=== PATIENT | female | born 1950 | race Caucasian/White ===

== ENCOUNTER 2020-09-15 10:20 | Outpatient (REF) | payer BC, MEDICARE, SELFPAY ==
[2020-09-15 12:26] LABS: MANUAL DIFF FLAG NO
[2020-09-15 12:35] LABS: Basophils Percent Auto 0.5 % (0-2); Eosinophils Absolute Auto 0.3 X10*3/uL (0.0-0.4); Hematocrit 43.2 % (37-47); Hemoglobin 13.4 g/dl (12.0-16.0); Imm Gran Abs Auto 0.02 X10*3/uL (0.00-0.03); Imm Gran Pct Auto 0.3 % (0.0-0.4); Lymphocytes Absolute Auto 1.4 X10*3/uL (1.2-4.9); Lymphocytes Percent Auto 22.3 % (20-40); Mean Corpuscular Hemoglobin 28.6 pg (27.0-33.0); Mean Corpuscular Volume 92.3 fL (80-98); Mean Platelet Volume 9.7 fL (9.4-12.3); Monocytes Absolute Auto 0.4 X10*3/uL (0.1-1.2); Monocytes Percent Auto 6.7 % (2-11); Neutrophils Absolute Auto 4.2 X10*3/uL (2.0-8.3); Neutrophils Percent Auto 66.2 % (45-73); Platelet Count 294 X10*3/uL (160-400); Red Blood Count 4.68 X10*6/uL (4.20-5.50); Red Cell Distribution Width 12.8 % (11.0-16.0); White Blood Count 6.3 X10*3/uL (4.8-10.8)
[2020-09-15 14:32] LABS: Erythrocyte Sedimentation Rate 28 MM/HR (0-20)
[2020-09-17 00:26] LABS: Anti Nuclear Antibody Screen POSITIVE (NEGATIVE); Anti Nuclear Antibody Titer 1:40 titer
[2020-09-17 21:21] LABS: IgA 196 mg/dL (70-320); IgG 1295 mg/dL (600-1540); IgM 63 mg/dL (50-300)
== END 2020-09-15 10:21 | disposition home or self-care (01) ==
LOC: HO.LAB 10:20
PROVIDERS: PCP Internal Medicine; Visit Provider Hospitalist
DX: J45.40 Moderate persistent asthma, uncomplicated (principal); J98.4 Other disorders of lung; R05 Cough; R06.02 Shortness of breath
CPT/HCPCS: 36415; 82784; 82785; 85025; 85652; 86003; 86038; 86039

== ENCOUNTER → 2020-10-16 13:54 | Outpatient (BNVA) | payer BC, MEDICARE, SELFPAY | PROVIDERS: PCP Internal Medicine; Visit Provider Hospitalist | DX: Z13.89 Encounter for screening for other disorder (principal) ==

== ENCOUNTER → 2021-10-19 10:42 | Outpatient (BNVA) | payer OTHER, MEDICARE, SELFPAY | PROVIDERS: PCP Internal Medicine; Visit Provider Hospitalist ==

== ENCOUNTER → 2022-01-18 09:30 | Outpatient (BNVA) | payer OTHER, MEDICARE, SELFPAY | PROVIDERS: PCP Internal Medicine; Visit Provider Hospitalist | DX: J98.4 Other disorders of lung (principal); J45.40 Moderate persistent asthma, uncomplicated; J31.0 Chronic rhinitis; J44.9 Chronic obstructive pulmonary disease, unspecified; R60.0 Localized edema | CPT/HCPCS: 99212 ==

== ENCOUNTER 2022-02-18 13:41 | Outpatient (REF) | payer OTHER, MEDICARE, SELFPAY ==
--- NOTE | ~2022-02-18 | XR_ITS ---
EXAMINATION: XR CHEST CLINICAL INFORMATION: Dyspnea COMPARISON: Previous chest x-ray January 2020 TECHNIQUE: 2 views of the chest were obtained. FINDINGS: The cardiac and mediastinal contours are stable. The lungs are clear. There is no pleural effusion or pneumothorax. There is curvature of the thoracic spine to the right and degenerative changes. XR/XR chest 2V IMPRESSION: No evidence for acute disease in the chest.
--- NOTE | 2022-02-18 17:24 | PFT_ITS ---
Forced vital capacity 61%, FEV1 72%. FEV1/FVC ratio is 89, [id number] 121%, and MVV is 71%. Post bronchodilator therapy, there is a significant improvement in FVC, FEV1, and NNQ22-81. Total lung capacity 75%. Residual volume 74%. Diffusion capacity 47%. CONCLUSION: 1. Restrictive pulmonary disorder, mild. 2. Obstructive airway disorder with good response to bronchodilator therapy and this is consistent with asthma/COPD overlap syndrome. Clinical correlation is recommended. MD SLICK Kitchen/MODL / [id number]
== END 2022-02-18 13:42 | disposition home or self-care (01) ==
LOC: HO.RESP 13:41
PROVIDERS: PCP Internal Medicine; Visit Provider Hospitalist
DX: R06.00 Dyspnea, unspecified (principal); R05.9 Cough, unspecified
CPT/HCPCS: 71046; 94060; 94727; 94729

== ENCOUNTER → 2022-03-01 14:41 | Outpatient (BNVA) | payer OTHER, MEDICARE, SELFPAY | PROVIDERS: PCP Internal Medicine; Visit Provider Hospitalist | DX: J44.9 Chronic obstructive pulmonary disease, unspecified (principal); R06.00 Dyspnea, unspecified ==

== ENCOUNTER 2022-07-29 08:08 | Outpatient (REF) | payer OTHER, MEDICARE, SELFPAY ==
[2022-07-29 09:34] LABS: Cholesterol 232 mg/dL; HDL Cholesterol 74 mg/dL; LDL Cholesterol Calculated 134 mg/dl; Triglycerides 121 mg/dL
== END 2022-07-29 08:09 | disposition home or self-care (01) ==
LOC: HO.LAB 08:08
PROVIDERS: PCP Internal Medicine; Visit Provider Internal Medicine
DX: K21.9 Gastro-esophageal reflux disease without esophagitis (principal); M81.0 Age-related osteoporosis without current pathological fracture; R63.5 Abnormal weight gain; N18.9 Chronic kidney disease, unspecified; M06.9 Rheumatoid arthritis, unspecified
CPT/HCPCS: 36415; 80061; 82306

== ENCOUNTER 2022-11-08 08:52 | Outpatient (REF) | payer OTHER, MEDICARE, SELFPAY ==
[2022-11-08 11:13] LABS: Cholesterol 229 mg/dL; HDL Cholesterol 71 mg/dL; LDL Cholesterol Calculated 132 mg/dl; Triglycerides 133 mg/dL
== END 2022-11-08 08:53 | disposition home or self-care (01) ==
LOC: HO.LAB 08:52
PROVIDERS: PCP Internal Medicine; Visit Provider Internal Medicine
DX: E78.00 Pure hypercholesterolemia, unspecified (principal)
CPT/HCPCS: 36415; 80061

== ENCOUNTER → 2022-11-18 14:18 | Outpatient (BNVA) | payer OTHER, MEDICARE, SELFPAY | PROVIDERS: PCP Internal Medicine; Visit Provider Hospitalist | DX: Z13.89 Encounter for screening for other disorder (principal) ==

== ENCOUNTER 2023-02-21 07:04 | Day surgery (SDC) | payer OTHER, MEDICARE, SELFPAY ==
[2023-02-16 09:27] VITALS: BMI 28.5
--- NOTE | 2023-02-17 11:26 | HP_ITS ---
DATE OF SERVICE: 02/21/2023 HISTORY OF PRESENT ILLNESS: The patient was seen in the office February 09, 2023, for preop evaluation prior to cataract surgery with Dr. Landeros scheduled for 02/21/2023. The patient is a 72-year-old female. PAST MEDICAL HISTORY: Significant for osteopenia, acid reflux disease, seronegative rheumatoid arthritis, varicose veins, both knees replaced, osteopenia, cold-induced asthma, venous stasis disease, history of right breast cancer. REVIEW OF SYSTEMS: Weight is up 5 pounds. No fevers or chills. Some fatigue. No headaches. No palpitations or chest pains. No coughing. No wheezing. No shortness of breath. Some acid reflux. Some constipation. Occasionally, no nausea, vomiting, or diarrhea. Urinary frequency and nocturia. No dysuria. Positive joint pains. Speech is normal. No confusion. Sleep and appetite are normal. She does have hay fever. FAMILY HISTORY: Mother at 95. Father in his 40s. SOCIAL: She is . Retired. Has an adopted son. PHYSICAL EXAMINATION: GENERAL: She is awake and alert, in no distress. VITAL SIGNS: Temperature 97.9, pulse 76, respirations 12, blood pressure 150/80, oxygen saturation 97%. Weight 205. She is 5 feet 8 inches. HEENT clear. HEART: Sounds S1 and S2. Regular rate. LUNGS: Clear. ABDOMEN: Soft and nontender. Positive bowel sounds. EXTREMITIES: No clubbing, cyanosis, or edema. 1 to 2+ pulses. Some varicose veins. Some venous stasis changes. No bruising. NEUROLOGIC: Awake and alert, in no distress. Cranial nerves II through XII are intact. ASSESSMENT AND PLAN: She is medically stable for the proposed procedure. I will be available if there are any other medical questions. Her present medications include tramadol, Flonase, albuterol, famotidine, Plaquenil, Trelegy, Daliresp, and meloxicam 15. Porfirio Ramírez MD FC/MODL / [id number]
--- NOTE | 2023-02-17 15:51 | MHC.SHP ---
Pre-Procedural Eval Section A Date of Service: 02/17/23 The patient is an INPATIENT: No Changes since office visit: No Cold of Flu in the past 2 weeks, No New Medical Problems, No Changes in Medication and No Patient answered all questions The History & Physical has been completed within 30 days and I have reviewed it.: Yes Section B Chief Complaint: Age-related nuclear cataract, left eye Allergies: Allergies Allergy/AdvReac Type Severity Reaction Status Date / Time No Known Allergies Allergy Mild N/A Verified 11/18/22 14:45 Plan Diagnosis/Plan: Unchanged I have reviewed the history and physical and performed a pertinent physical examination on my patient. No changes have occurred unless specified. Time Spent With Patient Time: Total time managing care of this patient today ____ minutes.
[2023-02-21 08:08] VITALS: BP 140/65; PULSE 70; RESP 16; TEMP 36.2; O2SAT 94
[2023-02-21] MEDS: Tetracaine HCl/PF 0.5% Oph Sol 4 ML DROPS 1 DROP EYE-LEFT (08:10)
[2023-02-21] MEDS: Cyclopentolate 1 % Ophth Sol 2 ML DRPBTL 1 DROP EYE-LEFT ×3 (08:13→08:24)
--- NOTE | 2023-02-21 08:13 | HO.ANESPROP2 ---
HPI - Anesthesia Eval Consult details Narrative: Left eye cataract + IOL PMFSH Active Problems Active Problems: All Active Problems (Updated 02/21/23 @ 07:51 by Vi Jaimes RN) Asthma-COPD overlap syndrome (Acute) Chronic rhinitis (Acute) Dyspnea (Acute) Cough (Acute) Chronic restrictive lung disease (Acute) Asthma (Acute) Past Medical History Medical History Asthma Asthma-COPD overlap syndrome Chronic restrictive lung disease Chronic rhinitis Cough Dyspnea GERD (gastroesophageal reflux disease) Hx of breast cancer Rheumatoid arthritis Family History Family history of problems with anesthesia: No Surgical History Surgical History History of open reduction and internal fixation (ORIF) procedure Hx of excision of mass Hx of lumpectomy Hx of total knee arthroplasty Hx of total knee arthroplasty History of Problems with Anesthesia: No Social History Social History Patient Tobacco Use Status: Never used Tobacco Use of substances other than those prescribed or required for medical reasons: No Are you DNR?: No Advance Directives: No Advance Directives Information Provided: Yes Meds Allergies Allergy/AdvReac Type Severity Reaction Status Date / Time No Known Allergies Allergy Mild N/A Verified 02/21/23 07:51 Active Medications: Current Medications Albuterol Sulfate (Albuterol Sulfate (0.083%) 2.5 Mg/3 Ml Vial.Neb) 2.5 mg INHALE ONCE PRN PRN Reason: Shortness of Breath/Wheezing Lactated Ringer's (Lr) 500 mls @ 50 mls/hr IV .Q10H BALBINA Stop: 02/21/23 17:44 Povidone Iodine (Povidone Iodine 5 % Ophth Soln 30 Ml Bottle) 1 appl EYE-LEFT PREOP PRN PRN Reason: Pre-Op Surgical Implant Prophy Home Medications Medication Instructions Recorded Confirmed Last Taken Type amoxicillin 500 mg capsule 1,000 mg PO BID 09/15/20 02/21/23 Unknown History cholecalciferol (vitamin D3) 50 50 mcg PO DAILY 09/15/20 02/21/23 Unknown History mcg (2,000 unit) capsule tramadol 50 mg tablet 50 mg PO Q4-6H PRN Pain 09/15/20 02/21/23 Unknown History hydroxychloroquine 200 mg tablet 200 mg PO BID 10/19/21 02/21/23 Unknown History biotin 5 mg tablet 0.05 mg PO DAILY 03/01/22 02/21/23 Unknown History meloxicam 15 mg tablet 15 mg PO DAILY 03/01/22 02/21/23 Unknown History albuterol sulfate 90 mcg/actuation 2 puff inhalation Q6H PRN 11/18/22 02/21/23 Unknown History aerosol inhaler (ProAir HFA) Shortness Of Breath fluticasone fur. 200 mcg-umeclid 1 inh inhalation DAILY 02/16/23 02/21/23 02/21/23 06:15 History 62.5 mcg-vilant 25 mcg inhalat.powder (Trelegy Ellipta) magnesium 200 mg tablet 200 mg PO DAILY 02/21/23 02/21/23 Unknown History omeprazole 20 mg capsule,delayed 20 mg PO DAILY 02/21/23 02/21/23 02/21/23 06:15 History release Exam Exam Date and Time: February 21, 2023812 Height,Weight and Vital Signs: Height 5 ft 10 in Weight 90.265 kg Last Vital Signs Temp 97.1 F 02/21/23 08:08 Pulse 70 02/21/23 08:08 Resp 16 02/21/23 08:08 BP 140/65 H 02/21/23 08:08 Pulse Ox 94 02/21/23 08:08 O2 Del Method Room Air 02/21/23 08:08 Airway Mallampati Class: III TM Dist: >3cm Neck ROM: Full Loose/Missing/Broken Teeth: No Heart: rrr+s1s2 Lungs: cta b/l Assessment and Plan Assessment Anesthesia Assessment: Anesthesia Plan Discussed and Chart Reviewed Final Anesthetic Review Family History of Problems with Anesthesia: No History of Problems with Anesthesia: No NPO: Yes ASA Class: II Final Preanesthetic Review: No Changes in Pt Med Stat, Meds/Allgs Chart Reviewed, Consent Obtained/Reviewed and Anes Risks/Benef Reviewed Patient Risk: Intermediate Procedure Risk: Low Assessment/Block/Sedation in SS: Assess/Block/Sedation-SS Anesthetic Plan Anesthetic Plan: MAC: and Agree w/ Assess. and Plan Disposition: Standard PACU
[2023-02-21] MEDS: Tropicamide 1 % Ophth Sol 3 ML BTL 1 DROP EYE-LEFT ×3 (08:14→08:26)
[2023-02-21] MEDS: Ketorolac Tromethamine 0.5% Op 5 ML DROPS 1 DROP EYE-LEFT ×3 (08:16→08:27)
[2023-02-21] MEDS: Phenylephrine HCL 2.5% Oph SoL 2 ML BOTTLE 1 DROP EYE-LEFT ×3 (08:17→08:28)
[2023-02-21] MEDS: Lactated Ringers 500 ML 50 ML IV (08:29)
--- NOTE | 2023-02-21 08:59 | HO.PNOPHT ---
Ophthalmology Procedure Procedure Date of Service: 02/21/23 Ophthalmology Viscoelastic: Healcortez Duet Dual Pack Pro Ophthalmology Lenses: TECNIS [id number] (16.5) Procedure Notes: PREOPERATIVE DIAGNOSIS: Decreased visual acuity left eye secondary to cataract POSTOPERATIVE DIAGNOSIS: Same PROCEDURE: Left cataract extraction with intraocular lens insertion SURGEON: Kale Landeros M.D. ANESTHESIA: Topical/MAC ESTIMATED BLOOD LOSS: None COMPLICATIONS: None After obtaining informed consent, the patient was brought to the operation room suite and placed in the supine position. After adequate sedation per anesthesia, topical drops of Tetracaine were given to the left eye. The eye was then prepped and draped in the usual sterile fashion. The operating room microscope was then positioned over the operative eye and a lid speculum placed. A paracentesis was created. Viscoelastic was then instilled into the anterior chamber. A three plane incision was then created temporally, utilizing a 2.85 mm keratome. Capsulotomy forceps were then utilized to create a circular tear capsulotomy. Hydrodissection and hydrodelineation were carried out until adequate mobilization of the nucleus occurred. Phacoemulsification was then utilized to remove the dense central nucleus followed by removal of the cortical material utilizing the automated aspiration irrigation unit. Viscoat elastic was instilled into the posterior capsular bag followed by placement of a posterior chamber intraocular lens without difficulty. The residual Viscoat elastic was then removed utilizing the automated IA machine. The wound was check and found to be watertight. The patient tolerated the procedure well and the lid speculum was removed. Intracameral injection of Vigamox 0.1 mL followed by a subtenon injection of Kenalog-40 0.2 mL were administered. The patient will be seen in the a.m.
[2023-02-21 09:22] VITALS: BP 137/69; PULSE 75; RESP 18; TEMP 36.6; O2SAT 94
== END 2023-02-21 09:29 | disposition home or self-care (01) ==
PROVIDERS: PCP Internal Medicine; Visit Provider Ophthalmology
PROC: (CPT 66985; principal; 2023-02-21 09:10)
DX: H25.12 Age-related nuclear cataract, left eye (principal); H52.4 Presbyopia; H18.413 Arcus senilis, bilateral; J44.9 Chronic obstructive pulmonary disease, unspecified; M06.9 Rheumatoid arthritis, unspecified; M19.90 Unspecified osteoarthritis, unspecified site; Z85.3 Personal history of malignant neoplasm of breast; Z79.899 Other long term (current) drug therapy; Z79.51 Long term (current) use of inhaled steroids
CPT/HCPCS: 66984; J2250; J3301; V2632

== ENCOUNTER 2023-03-07 06:28 | Day surgery (SDC) | payer OTHER, MEDICARE, SELFPAY ==
[2023-02-16 09:33] VITALS: BMI 28.5
--- NOTE | 2023-03-04 08:02 | MHC.SHP ---
Pre-Procedural Eval Section A Date of Service: 03/04/23 The patient is an INPATIENT: No Changes since office visit: No Cold of Flu in the past 2 weeks, No New Medical Problems, No Changes in Medication and No Patient answered all questions The History & Physical has been completed within 30 days and I have reviewed it.: Yes Section B Chief Complaint: Age-related nuclear cataract, right eye Allergies: Allergies Allergy/AdvReac Type Severity Reaction Status Date / Time No Known Allergies Allergy Mild N/A Verified 02/21/23 07:51 Plan Diagnosis/Plan: Unchanged I have reviewed the history and physical and performed a pertinent physical examination on my patient. No changes have occurred unless specified. Time Spent With Patient Time: Total time managing care of this patient today ____ minutes.
[2023-03-07 07:13] VITALS: BMI 28.7
[2023-03-07 07:16] VITALS: BP 137/71; PULSE 74; RESP 18; TEMP 36.6; O2SAT 93
[2023-03-07] MEDS: Lactated Ringers 500 ML 50 ML IV (07:20)
[2023-03-07] MEDS: Phenylephrine HCL 2.5% Oph SoL 2 ML BOTTLE 1 DROP EYE-RIGHT ×3 (07:21→07:36)
[2023-03-07] MEDS: Ketorolac Tromethamine 0.5% Op 5 ML DROPS 1 DROP EYE-RIGHT ×3 (07:21→07:36)
[2023-03-07] MEDS: Tetracaine HCl/PF 0.5% Oph Sol 4 ML DROPS 1 DROP EYE-RIGHT (07:21)
[2023-03-07] MEDS: Tropicamide 1 % Ophth Sol 3 ML BTL 1 DROP EYE-RIGHT ×3 (07:21→07:37)
[2023-03-07] MEDS: Cyclopentolate 1 % Ophth Sol 2 ML DRPBTL 1 DROP EYE-RIGHT ×3 (07:22→07:37)
--- NOTE | 2023-03-07 07:32 | HO.ANESPROP2 ---
[facility] Active Problems Active Problems: All Active Problems (Updated 02/21/23 @ 07:51 by iV Jaimes RN) Asthma-COPD overlap syndrome (Acute) Chronic rhinitis (Acute) Dyspnea (Acute) Cough (Acute) Chronic restrictive lung disease (Acute) Asthma (Acute) Past Medical History Medical History Asthma Asthma-COPD overlap syndrome Chronic restrictive lung disease Chronic rhinitis Cough Dyspnea GERD (gastroesophageal reflux disease) Hx of breast cancer Rheumatoid arthritis Family History Family history of problems with anesthesia: No Surgical History Surgical History History of open reduction and internal fixation (ORIF) procedure Hx of excision of mass Hx of lumpectomy Hx of total knee arthroplasty Hx of total knee arthroplasty History of Problems with Anesthesia: No Social History Social History Patient Tobacco Use Status: Never used Tobacco Use of substances other than those prescribed or required for medical reasons: No Are you DNR?: No Advance Directives: No Advance Directives Information Provided: Yes Advance Directives on File: No Meds Allergies Allergy/AdvReac Type Severity Reaction Status Date / Time No Known Allergies Allergy Mild N/A Verified 02/21/23 07:51 Active Medications: Current Medications Albuterol Sulfate (Albuterol Sulfate (0.083%) 2.5 Mg/3 Ml Vial.Neb) 2.5 mg INHALE ONCE PRN PRN Reason: Shortness of Breath/Wheezing Lactated Ringer's (Lr) 500 mls @ 50 mls/hr IV .Q10H BALBINA Stop: 03/07/23 16:44 Last Admin: 03/07/23 07:20 Dose: 50 mls/hr Povidone Iodine (Povidone Iodine 5 % Ophth Soln 30 Ml Bottle) 1 appl EYE-RIGHT PREOP PRN PRN Reason: Pre-Op Surgical Implant Prophy Home Medications Medication Instructions Recorded Confirmed Last Taken Type amoxicillin 500 mg capsule 1,000 mg PO BID 09/15/20 03/07/23 Unknown History cholecalciferol (vitamin D3) 50 50 mcg PO DAILY 09/15/20 03/07/23 Unknown History mcg (2,000 unit) capsule tramadol 50 mg tablet 50 mg PO Q4-6H PRN Pain 09/15/20 03/07/23 Unknown History hydroxychloroquine 200 mg tablet 200 mg PO BID 10/19/21 02/21/23 Unknown History biotin 5 mg tablet 0.05 mg PO DAILY 03/01/22 03/07/23 Unknown History meloxicam 15 mg tablet 15 mg PO DAILY 03/01/22 03/07/23 Unknown History albuterol sulfate 90 mcg/actuation 2 puff inhalation Q6H PRN 11/18/22 02/21/23 Unknown History aerosol inhaler (ProAir HFA) Shortness Of Breath fluticasone fur. 200 mcg-umeclid 1 inh inhalation DAILY 02/16/23 02/21/23 03/07/23 History 62.5 mcg-vilant 25 mcg inhalat.powder (Trelegy Ellipta) magnesium 200 mg tablet 200 mg PO DAILY 02/21/23 03/07/23 Unknown History omeprazole 20 mg capsule,delayed 20 mg PO DAILY 02/21/23 03/07/23 03/07/23 History release Exam Exam Date and Time: March 07, 2023 0732 Height,Weight and Vital Signs: Height 5 ft 10 in Weight 90.718 kg Last Vital Signs Temp 97.8 F 03/07/23 07:16 Pulse 74 03/07/23 07:16 Resp 18 03/07/23 07:16 BP 137/71 03/07/23 07:16 Pulse Ox 93 03/07/23 07:16 O2 Del Method Room Air 03/07/23 07:16 Airway Mallampati Class: III TM Dist: >3cm Neck ROM: Full Loose/Missing/Broken Teeth: No Heart: RRR Lungs: CTA Assessment and Plan Assessment Anesthesia Assessment: Anesthesia Plan Discussed and Chart Reviewed Final Anesthetic Review Family History of Problems with Anesthesia: No History of Problems with Anesthesia: No NPO: Yes ASA Class: III Final Preanesthetic Review: Meds/Allgs Chart Reviewed, Consent Obtained/Reviewed and Anes Risks/Benef Reviewed Patient Risk: Intermediate Procedure Risk: Low Anesthetic Plan Anesthetic Plan: MAC: Disposition: Standard PACU
[2023-03-07] MEDS: Albuterol Sulfate (0.083%) 2.5 MG/3 ML VIAL.NEB INHALE (07:41)
--- NOTE | 2023-03-07 08:25 | HO.PNOPHT ---
Ophthalmology Procedure Procedure Date of Service: 03/07/23 Ophthalmology Viscoelastic: Healcortez Solist Dual Pack Pro Ophthalmology Lenses: TECNIS [id number] (16.5) Procedure Notes: PREOPERATIVE DIAGNOSIS: Decreased visual acuity right eye secondary to cataract POSTOPERATIVE DIAGNOSIS: Same PROCEDURE: Right cataract extraction with intraocular lens insertion SURGEON: Kale Landeros M.D. ANESTHESIA: Topical/MAC ESTIMATED BLOOD LOSS: None COMPLICATIONS: None After obtaining informed consent, the patient was brought to the operating room suite and placed in the supine position. After adequate sedation per anesthesia, topical drops of Tetracaine were given to the right eye. The eye was then prepped and draped in the usual sterile fashion. The operating room microscope was then positioned over the operative eye and a lid speculum placed. A paracentesis was created. Viscoelastic was then instilled into the anterior chamber. A three plane incision was then created temporally, utilizing a 2.85 mm keratome. Capsulotomy forceps were then utilized to create a circular tear capsulotomy. Hydrodissection and hydrodelineation were carried out until adequate mobilization of the nucleus occurred. Phacoemulsification was then utilized to remove the dense central nucleus followed by removal of the cortical material utilizing the automated aspiration irrigation unit. Viscoelastic was instilled into the posterior capsular bag followed by placement of a posterior chamber intraocular lens without difficulty. The residual Viscoelastic was then removed utilizing the automated IA machine. The wound was checked and found to be watertight. The patient tolerated the procedure well and the lid speculum was removed. Intracameral injection of Vigamox 0.1 mL followed by a subtenon injection of Kenalog-40 0.2 mL were administered. The patient will be seen in the a.m.
[2023-03-07 08:54] VITALS: BP 155/78; PULSE 82; RESP 18; TEMP 36.3; O2SAT 96
== END 2023-03-07 09:02 | disposition home or self-care (01) ==
PROVIDERS: PCP Internal Medicine; Visit Provider Ophthalmology
PROC: (CPT 66985; principal; 2023-03-07 08:30)
DX: H25.11 Age-related nuclear cataract, right eye (principal); H52.4 Presbyopia; H18.413 Arcus senilis, bilateral; M85.80 Other specified disorders of bone density and structure, unspecified site; M06.00 Rheumatoid arthritis without rheumatoid factor, unspecified site; J44.9 Chronic obstructive pulmonary disease, unspecified; K21.9 Gastro-esophageal reflux disease without esophagitis; M19.90 Unspecified osteoarthritis, unspecified site; Z79.51 Long term (current) use of inhaled steroids; Z79.899 Other long term (current) drug therapy; Z96.653 Presence of artificial knee joint, bilateral
CPT/HCPCS: 66984; J2250; J3301; V2632

== ENCOUNTER 2023-11-24 12:52 | Outpatient (AMB) | payer OTHER, MEDICARE, SELFPAY ==
[2023-11-24 12:57] VITALS: PULSE 79; O2SAT 95; BMI 29.3
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
== END 2023-11-24 13:18 | disposition home or self-care (01) ==
PROVIDERS: PCP Internal Medicine; Visit Provider Hospitalist
DX: J45.40 Moderate persistent asthma, uncomplicated (principal); J98.4 Other disorders of lung; R05.3 Chronic cough; J31.0 Chronic rhinitis; J44.9 Chronic obstructive pulmonary disease, unspecified
CPT/HCPCS: 99214

== ENCOUNTER → 2023-11-24 12:52 | Outpatient (BNVA) | payer OTHER, MEDICARE, SELFPAY | PROVIDERS: PCP Internal Medicine; Visit Provider Hospitalist ==

== ENCOUNTER 2023-12-05 11:27 | Outpatient (REF) | payer OTHER, MEDICARE, SELFPAY ==
--- NOTE | ~2023-12-05 | XR_ITS ---
EXAMINATION: XR CHEST CLINICAL INFORMATION: OPD COMPARISON: None available. TECHNIQUE: 2 views of the chest were obtained. FINDINGS: vascularity. LUNGS: Rounded masslike alveolar density measuring 1.5 cm in diameter is seen in right midlung. Additional patchy alveolar density is seen beneath the round density in right lower mid lung. No pneumothorax is seen. BONES: Bony skeleton is intact. There is persistent moderate lower thoracic dextroscoliosis. XR/XR chest 2V IMPRESSION: Interval development of Masslike alveolar density seen in the right midlung and patchy alveolar density in the right mid and lower lung. Follow-up chest x-ray after treatment is recommended. If densities persist, evaluation with contrast-enhanced CT scan of the chest would be needed to exclude developing lung carcinoma.
== END 2023-12-05 11:28 | disposition home or self-care (01) ==
LOC: HO.XRAY 11:27
PROVIDERS: PCP Internal Medicine; Visit Provider Hospitalist
DX: J44.9 Chronic obstructive pulmonary disease, unspecified (principal)
CPT/HCPCS: 71046

== ENCOUNTER 2024-01-12 07:19 | Outpatient (REF) | payer OTHER, MEDICARE, SELFPAY ==
--- NOTE | ~2024-01-12 | CT_ITS ---
EXAMINATION: CT CHEST WITHOUT CONTRAST CLINICAL INFORMATION: Abnormal findings on diagnostic imaging of other specified body COMPARISON: Chest x-ray to. TECHNIQUE: Multidetector volumetric CT imaging of the chest was done. Axial MIP volume rendering provided. Sagittal and coronal reformatted images were obtained. This CT examination was performed using dose optimization techniques as appropriate, variously including the following: *Automated exposure control *Adjustment of mA and/or kV according to patient size (this includes techniques or standardized protocols for targeted exams where dose is matched to indication/reason for exam; i.e. extremities or head) *Use of iterative reconstruction technique DLP: 130 mGy-cm FINDINGS: LUNGS: There is no airspace disease to correlate with the chest x-ray findings and likely reflects superimposition of calloused rib fractures. There is mild diffuse airway wall thickening with some mosaic attenuation at the lung bases favoring airways disease. There is no suspicious pulmonary nodule. There is no consolidation. Very mild subpleural reticular reticulation with basilar predominance suggestive of mild interstitial disease. MEDIASTINUM: No adenopathy. No pericardial effusion. Small hiatal hernia. CORONARY ARTERY CALCIFICATION: None visualized on this study. PLEURA: There is no pleural effusion. No pleural mass or thickening. AXILLA: No lymphadenopathy. UPPER ABDOMEN: Calcified granulomas in the liver. OSSEOUS STRUCTURES: Thoracic kyphoscoliosis. Degenerative changes in the spine. Calloused anterior right fourth and fifth rib fractures CT/CT chest wo IV con IMPRESSION: The findings on prior chest x-ray likely reflects superimposition of calloused anterior fourth and fifth rib fractures. There is no suspicious airspace opacity on CT to correlate with the chest x-ray. Airway wall thickening and mosaic attenuation at the lung bases suggesting airways disease. Mild subpleural reticulation with basilar predominance suggesting mild interstitial lung disease. Fleischner guidelines were followed.
== END 2024-01-12 07:20 | disposition home or self-care (01) ==
LOC: HO.CT 07:19
PROVIDERS: PCP Internal Medicine; Visit Provider Hospitalist
DX: R93.89 Abnormal findings on diagnostic imaging of other specified body structures (principal)
CPT/HCPCS: 71250

== ENCOUNTER 2024-02-09 14:33 | Outpatient (AMB) | payer OTHER, MEDICARE, SELFPAY ==
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
[2024-02-09 14:50] VITALS: PULSE 83; O2SAT 95; BMI 29.7
== END 2024-02-09 15:41 | disposition home or self-care (01) ==
PROVIDERS: PCP Internal Medicine; Visit Provider Hospitalist
DX: J45.50 Severe persistent asthma, uncomplicated (principal); J98.4 Other disorders of lung; R05.3 Chronic cough; J31.0 Chronic rhinitis; J44.9 Chronic obstructive pulmonary disease, unspecified; R00.0 Tachycardia, unspecified; R06.02 Shortness of breath
CPT/HCPCS: 99214

== ENCOUNTER → 2024-02-09 14:33 | Outpatient (BNVA) | payer OTHER, MEDICARE, SELFPAY | PROVIDERS: PCP Internal Medicine; Visit Provider Hospitalist ==

== ENCOUNTER → 2024-03-05 14:01 | Outpatient (REF) | payer OTHER, MEDICARE, SELFPAY ==
--- NOTE | 2024-03-05 14:06 | CA_ITS ---
Transthoracic Echocardiogram Patient (Last, First, Middle): Rosi Pina E Gender: Female Date of : 1950 Age: 73 Procedure Date: 03/05/2024 Procedure Type: Transthoracic Echocardiogram Location: OP Height: 177.8 cm Weight: 94.8 kg BSA: 2.13 m2 Heart Rate: 81 bpm BP: 160 / 85 mmHg Chair Car Attendant: RUDI Referring MD: Wilfred Hoskins MD Symptoms: I27.20 - Pulmonary hypertension, unspecified Study Quality: Adequate ECG Rhythm: Sinus Conclusions: - The left ventricular systolic function is normal. The calculated ejection fraction is 57% by biplane method. - No obvious valvular pathology seen on this study. - There is no evidence of pulmonary hypertension. Findings Left Ventricle Normal left ventricular cavity size. There is mildly increased left ventricular wall thickness. The left ventricular systolic function is normal. The calculated ejection fraction is 57% by biplane method. There is no evidence of regional wall motion abnormalities. LV peak GLS -17.1%. Right Ventricle Normal right ventricular cavity size and systolic function. Atria Both atria are normal in size. Aortic Valve There is a normal trileaflet aortic valve. There is no aortic valve stenosis. There is no aortic valve regurgitation. Mitral Valve The mitral valve appears normal. There is no mitral valve regurgitation. There is no mitral valve stenosis. Pulmonic Valve The pulmonic valve is likely normal. Tricuspid Valve Normal tricuspid valve structure. There is trace tricuspid valve regurgitation. There is no evidence of pulmonary hypertension. Great Vessels The asc aorta is normal in size. Venous The inferior vena cava is normal in size and collapses greater than 50% with inspiration. Pericardium/Pleural There is no evidence of pericardial effusion. Prior Study Comparison No significant change compared to prior study dated: 07/30/2019. Recommendations, Care & Conclusions No obvious valvular pathology seen on this study. Measurements 2D Linear Measurements IVSd: 1.12 0.6-0.9/0.6-1.0 cm LVIDd: 3.49 3.9-5.3/4.2-5.9 cm LVIDd Index: 1.64 2.4-3.2/2.2-3.1 cm/m2 LVIDs: 2.09 2.0-3.6 cm LVPWd: 1.17 0.7-1.1 cm LA Diam: 3.50 2.7-3.8/3.0-4.0 cm LAIDs Index: 1.64 1.5-2.3 cm/m2 LV Mass: 156.62 67-162/88-224 g LV Mass Index: 73.53 43-95/49-115 g/m2 LVOT Diam: 2.20 3.0+(-)1.3 cm 2D Systolic Function EF 4C: 51.20 >55% EF 2C: 61.10 >55% EF BiP: 57.40 >55% Mitral Valve MV Pk E: 0.95 MV PK A: 1.03 MV Decel Time: 195.00 E/A: 0.90 E'Lateral: 7.94 E'Medial: 7.40 E/E' Med: 12.80 E/E' Lat: 11.90 PHT: 57.00 MVA PHT: 3.86 Decel Garrard: 4.86 Aortic Valve AoV Pk Nicola: 1.29 AoV Mn Nicola: 0.99 AoV VTI: 0.30 AoV Pk Grad: 7.00 Aov Mn Grad: 4.00 HOLLIE Cont.VTI: 2.84 LVOT LVOT Pk Nicola: 1.03 LVOT Mn Nicola: 0.76 LVOT VTI: 0.22 LVOT Pk Grad: 4.00 LVOT Mn Grad: 3.00 LVOT Diam: 2.20 LVOT Area: 3.80 Diastolic Function MV Pk E: 0.95 MV Pk A: 1.03 E/A: 0.90 E'Medial: 7.40 E/E' Med: 12.80 E' Laterial: 7.94 E/E' Lat: 11.90 Right Ventricle TAPSE (mm): 23.60 TVS' Nicola: 14.10 Tricuspid Valve TR Pk Nicola: 2.06 TR Pk Grad: 17.00 RA Press: 3.00 RVSP: 20.00 Great Vessels Aorta Sinus of Valsalva: 3.40 2.0-3.5 cm Ao Asc: 3.30 2.1-3.4 cm Pulmonary Valve PV Pk Nicola: 0.76 Peak PV Grad: 2.00 Updated in Other Vendor System with Status of Final Mitch Graff MD electronically signed on 03/06/2024 8:55:57 AM with status of Final
--- NOTE | 2024-03-05 14:06 | ECG_ITS ---
Test Reason : j44.9 Blood Pressure : / mmHG Vent. Rate : 085 BPM Atrial Rate : 085 BPM P-R Int : 118 ms QRS Dur : 090 ms QT Int : 384 ms P-R-T Axes : 019 036 031 degrees QTc Int : 456 ms Normal sinus rhythm Possible Inferior infarct , age undetermined Abnormal ECG When compared with ECG of 10-AUG-2009 07:51, Borderline criteria for Inferior infarct are now Present Referred By: Wilfred Hoskins Electronically Signed By:Devon Schilling
== END ==
LOC: HO.CARD 14:01
PROVIDERS: PCP Internal Medicine; Visit Provider Hospitalist
DX: I27.20 Pulmonary hypertension, unspecified (principal); J44.9 Chronic obstructive pulmonary disease, unspecified
CPT/HCPCS: 93005; 93306; 93356

== ENCOUNTER → 2024-03-05 14:06 | Outpatient (BNV) | payer OTHER, MEDICARE, SELFPAY | PROVIDERS: PCP Internal Medicine; Visit Provider Internal Medicine | DX: J44.9 Chronic obstructive pulmonary disease, unspecified (principal) | CPT/HCPCS: 93010; 93306 ==

== ENCOUNTER 2024-05-31 09:44 | Outpatient (AMB) | payer OTHER, MEDICARE, SELFPAY ==
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
[2024-05-31 09:54] VITALS: BP 124/60; PULSE 80; O2SAT 95; BMI 29.7
== END 2024-05-31 10:08 | disposition home or self-care (01) ==
PROVIDERS: PCP Internal Medicine; Visit Provider Hospitalist
DX: J98.4 Other disorders of lung (principal); R05.3 Chronic cough; J31.0 Chronic rhinitis; J44.9 Chronic obstructive pulmonary disease, unspecified; R06.02 Shortness of breath; M06.9 Rheumatoid arthritis, unspecified
CPT/HCPCS: 99214; G2211

== ENCOUNTER → 2024-05-31 09:44 | Outpatient (BNVA) | payer OTHER, MEDICARE, SELFPAY | PROVIDERS: PCP Internal Medicine; Visit Provider Hospitalist | DX: J44.9 Chronic obstructive pulmonary disease, unspecified (principal); J45.40 Moderate persistent asthma, uncomplicated; J31.0 Chronic rhinitis ==

== ENCOUNTER 2024-06-04 08:42 | Outpatient (REF) | payer OTHER, MEDICARE, SELFPAY ==
[2024-06-04 09:00] LABS: MANUAL DIFF FLAG NO
[2024-06-04 09:09] LABS: Basophils Absolute Auto 0.1 X10*3/uL (0.0-0.2); Basophils Percent Auto 1.3 % (0-2); Eosinophils Absolute Auto 0.2 X10*3/uL (0.0-0.4); Eosinophils Percent Auto 4.1 % (0-4); Imm Gran Abs Auto 0.01 X10*3/uL (0.00-0.03); Imm Gran Pct Auto 0.3 % (0.0-0.4); Lymphocytes Absolute Auto 1.3 X10*3/uL (1.2-4.9); Lymphocytes Percent Auto 32.2 % (20-40); Mean Corpuscular HGB Conc 32.5 g/dl (31.0-35.0); Mean Corpuscular Hemoglobin 30.7 pg (27.0-33.0); Mean Corpuscular Volume 94.3 fL (80.0-98.0); Mean Platelet Volume 8.9 fL (9.4-12.3); Monocytes Absolute Auto 0.3 X10*3/uL (0.1-1.2); Monocytes Percent Auto 8.4 % (2-11); Neutrophils Absolute Auto 2.1 x10*3/uL (2.0-8.3); Neutrophils Percent Auto 53.7 % (45-73); Platelet Count 255 X10*3/uL (160-400); Red Blood Count 4.24 X10*6/uL (4.20-5.50); Red Cell Distribution Width 13.2 % (11.0-16.0)
[2024-06-04 09:47] LABS: Alanine Aminotransferase 16 U/L (0-31); Albumin Level 4.3 g/dL (3.5-5.0); Alkaline Phosphatase 83 U/L (39-117); Anion Gap 11 (12-20); Aspartate Amino Transferase 15 U/L (5-31); Bilirubin Total 0.5 mg/dL (0.0-1.0); Blood Urea Nitrogen 16 mg/dL (9-16); Calcium 10.1 mg/dL (8.4-10.2); Carbon Dioxide 28 mmol/L (22-29); Chloride 105 mmol/L (96-108); Cholesterol 245 mg/dL (<200); Estimated Glomerular Filt Rate > 60; Glucose Fasting 100 mg/dL (60-99); HDL Cholesterol 78 mg/dL (>40); LDL Cholesterol Calculated 148 mg/dL (<100); Potassium 4.7 mmol/L (3.3-5.1); Sodium 139 mmol/L (135-145); Total Protein 7.1 g/dL (6.5-8.0); Triglycerides 98 mg/dL (<150)
[2024-06-04 10:02] LABS: Vitamin D 25-OH Total 72.3 ng/mL (>30)
== END 2024-06-04 08:43 | disposition home or self-care (01) ==
LOC: HO.LAB 08:42
PROVIDERS: PCP Internal Medicine; Visit Provider Internal Medicine
DX: M06.00 Rheumatoid arthritis without rheumatoid factor, unspecified site (principal); K21.9 Gastro-esophageal reflux disease without esophagitis; M85.80 Other specified disorders of bone density and structure, unspecified site; I83.90 Asymptomatic varicose veins of unspecified lower extremity
CPT/HCPCS: 36415; 80053; 80061; 82306; 85025

== ENCOUNTER 2025-07-18 13:25 | Outpatient (AMB) | payer OTHER, MEDICARE, SELFPAY ==
--- OUTSIDE RECORDS SUMMARY | 2019-11-28 15:27 | XMS_ITS | Encounter Summary ---
Author Organization [facility] Address [address] [place] [phone] Phone Care Team Providers Care Divorce Attorney Name Role Phone Ever Ramírez MD Primary Care Provider Encounter Details Date Type Department Care Team (Late st Contact Info) Description 11/28/2019 2:27 PM [facility] Hospital Encounter [facility] [address] [place] [phone] Coco tSrauss CNP [address] [place] [phone] [email or web address] Social History Tobacco Use Types Packs/Day Years Used Date Smoking Tobacco: Never Smokeless Tobacco: Never Education Answer Date Recorded Are you interested in more education? Not on clayton e 02/25/2023 Are you concerned about learning? Not on file 02/25/2023 No 02/25/2023 No 02/25/2023 Digital Access Answer Date Recorded No 03/26/2023 No 03/26/2023 No 03/26/2023 Reliable internet access at home? Not on file 03/26/2023 Device with a working camera? Not on file Comments Unknown Sex and Gender Information Value Date Recorded [...] distal fibular diaphysis and medial malleolus. POS: [id number] Narrative 11/28/2019 2:46 PM EST XR ANKLE [...] the distal fibular diaphysis andmedial malleolus. POS: [id number] Coco Gabriel Carlos A LASER BEAM CUTTER IMG XR LOWER EXTREMITY Tali l Result documented in this encounter Visit Diagnoses Not on filedocumented in this encounter Care Teams Divorce Attorney Relationship Specialty Start Date End Date Ever Ramírez MD [address] [place] [address] [place] [address] PCP - General Internal Medicine 01/08/19 documented as of this encounter Additional Source Comments The information contained in this document represents components of the legal health record. It is not the complete legal health record.[facility]
--- NOTE | 2025-07-18 13:26 | A.OFFPC_ITS ---
Vital Signs 07/18/25 13:33 Height 5 ft 10 in Weight 204 lb BMI 29.3 BMI Reason not done Patient refused/unable BP 146/84 H Blood Pressure Location Lt brachial Position Sitting Respiration 18 Pulse 85 Pulse Source Pulse Oximeter Temp 97.9 F Temp Source Temporal Artery Scan Pulse Oximetry (%) 96 Oxygen Delivery Method Room Air Intake Visit Reasons: routine - see comments Periodicals Clerk Required: No Allergies No Known Allergies Allergy (Mild, Verified 07/18/25 13:26) N/A Tobacco use date assessed: 07/18/25 Fall risk assessment: No Falls in past year Last assessed Fall Risk: 07/18/25 Dental Screening Dental Screen Date: 07/18/25 Did you have a dental visit in the last 12 months?: Yes Did you have a dental problem in the last 6 months where you did not have access to dental care?: No Was dental information given to patient?: Patient has dentist HPI HPI Comments History of Present Illness Details The patient is a 74-year-old female presenting for a comprehensive annual wellness examination. 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 Her asthma and restrictive lung disease have been managed with albuterol as needed, and she has not reported any current respiratory difficulties. Rheumatoid arthritis has been a persistent issue, with medications in place to manage symptoms. She has experienced multiple fractures in the past, which she attributes to bone fragility. Her history of breast cancer involved a right lumpectomy, and she has been in remission since 1996 with no evidence of recurrence. Psoriasis and seborrhea affect her skin, requiring ongoing dermatological care. She underwent cataract surgery in 2022 and bilateral knee replacements in 2018 and 2019. Family history reveals breast cancer on her maternal side and unspecified uterine issues in her mother. There is no significant family history of heart disease or diabetes, and she is unaware of paternal history due to her father?s during her childhood. The patient denies any history of smoking, alcohol, or drug use, and reports mild anxiety primarily related to concerns for her son?s mental health. Medical History: - Hypocystosis - Restrictive Lung Disease - Asthma - Rheumatoid Arthritis - History of multiple fractures - Breast Cancer, right lumpectomy (remis viri since 1996) - Psoriasis - Seborrhea - Cataract, post-surgery (2022) - Bilateral Knee Replacements (2018 and 2019) - Anxiety - Overweight - Varicose Veins Surgical History: - Right breast lumpectomy - Cataract surgery (2022) - Bilateral knee replacements (2018 and 2019) Medications: - Albuterol inhalation as needed for ast hma and restrictive lung disease - Vitamin D3 supplement - Fluticasone nasal spray for cough - Hydroxychloroquine 200 mg twice daily for rheumatoid arthritis - Levothyroxine inhalation as needed - Meloxicam 15 mg daily for rheumatoid a rthritis pain - Omeprazole daily for acid reflux - Luflumid and sulfasalazine for restric tive lung disease and rheumatoid arthritis - Tramadol 50 mg 4-6 hours as needed for rheumatoid arthritis pain Family History: - Breast cancer (maternal side) - Uterine issues (mother) - No significant history of heart diseas e or diabetes Social: - Lives with a 28-year-old son who has m ental health issues, including depression - Reports anxiety associated with son's mental health state and concerns over his safety - Reports being overweight and working o n weight management - Denies smoking, alcohol, drug use, and any known allergies except for sensitivity to smells [facility] Medical History (Updated 07/18/25 @ 13:49 by Bulmaro Stevens MD) Psoriasis Anxiety Hyperlipidemia Tachycardia Hx of breast cancer Rheumatoid arthritis GERD (gastroesophageal reflux disease) Asthma-COPD overlap syndrome Chronic rhinitis Dyspnea Cough Chronic restrictive lung disease Asthma Surgical History Hx of lumpectomy Hx of excision of mass Hx of total knee arthroplasty Hx of total knee arthroplasty History of open reduction and internal fixation (ORIF) procedure Social History Housing: House Patient Tobacco Use Status: Never used Tobacco e-Cigarette/Vaping Use: Never Used service: No Current occupational status: employed and retired 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 1. Little interest or pleasure in doing things: not at all 2. Feeling down, depressed, or hopeless: several days 3. Trouble falling or staying asleep, or sleeping too much: not at all 4. Feeling tired or having little energy: several days 5. Poor appetite or overeating: not at all 6. Feeling bad about yourself - or that you are a failure or have let yourself or your family down: not at all 7. Trouble concentrating on things, such as reading the newspaper or watching television: not at all 8. Moving or speaking so slowly that other people could have noticed. Or the opposite - being so fidgety or restless that you have been moving around a lot more than usual: not at all 9. Thoughts that you would be better off or of hurting yourself in some way: not at all Total score: 2 Depression Screening Interpretation: Negative Depression Screening Done: Yes 80970 - PHQ-9 Billing: Yes Source: Developed by Drs. Ja Ellington, Khadijah Leavitt, Delgado Denise and colleagues, with an educational cinda from [employer]. Thrive Questionnaire Date Thrive assessed: 07/18/25 I am a: Patient What is your living situation today?: I have a steady place to live Within the past 12 months, did the food you bought not last and you didn't have the money to get more?: Never true Within the past 12 months, did you worry whether your food would run out before you got money to buy more?: Never true Do you have trouble paying for medicines?: No Do you have trouble getting transportation to medical appointments?: No Do you have trouble paying your heating and electricity bill?: No Do you have trouble taking care of your child, family member or friend?: No Do you have trouble with day-to-day activities such as bathing, preparing meals, shopping, managing finances, etc.?: No Are you currently unemployed and looking for a job?: No Are you interested in more education?: No THRIVE Score: 0 AUDIT C Alcohol Use Questionnaire (AUDIT-C) 1. How often do you have a drink containing alcohol?: Never 3. How often do you have six or more drinks on one occasion?: Never Total Score: 0 Score Reviewed/Action Taken: Yes GRAHAM-7 AMB Questionnaire GRAHAM-7 Date GRAHAM - 7 assessed: 07/18/25 Feeling nervous, anxious, or on edge: 2 = More than half the days Not being able to stop or control worryin = Several days Worrying too much about different things: 1 = Several days Trouble relaxin = Not at all Being so restless that it is hard to sit still: 0 = Not at all Becoming easily annoyed or irritable: 0 = Not at all Feeling afraid as if something awful might happen: 0 = Not at all Total GRAHAM-7 score (0-4 normal; 5-9 mild; 10-14 moderate; 15-21 severe): 4 Source: Developed by Drs. Ja Ellington, Khadijah Leavitt, Delgado Denise and colleagues, with an educational cinda from [employer]. GRAHAM-7 Assessment Billing GRAHAM-7 Assessment Tool: GRAHAM-7 Assessment 93030 (Started on Fluoxeitine) Review of Systems Const Details: - Musculoskeletal: Reports back pain due to hypocystosis - Respiratory: Reports asthma managed with medication; denies current lung issues - Dermatological: Reports psoriasis and seborrhea - Ophthalmological: Denies issues post cataract surgery - Psychiatric: Reports anxiety, primarily related to son's mental health - General: Reports being overweight; denies other systemic symptoms All systems reviewed & are unremarkable except as reviewed in HPI and above Physical exam (Primary Care) Vital Signs: Last Vital Signs Temp 97.9 F 07/18/25 13:33 Pulse 85 07/18/25 13:33 Resp 18 07/18/25 13:33 BP 146/84 H 07/18/25 13:33 Pulse Ox 96 07/18/25 13:33 Oxygen Delivery Method Room Air 07/18/25 13:33 BMI result Body Mass Index 29.3 Tobacco/Smoking Status: Tobacco use Status Tobacco use date assessed 07/18/25 07/18/25 13:35 Patient Tobacco Use Status Never used Tobacco 07/18/25 13:28 e-Cigarette/Vaping Use Never Used 07/18/25 13:35 PHQ-9: PHQ-9 Score PHQ-9: Total score 2 07/18/25 13:45 Depression Screening Interpretation: Negative Thrive Assessment: Date of Thrive Assessment Date Thrive assessed 07/18/25 07/18/25 13:45 Const Other: General: +Alert and oriented, Well nourished, No acute distress. Eye: Pupils are equal, round and reactive to light, Intact accommodation, Extraocular movements are intact, Normal conjunctiva, Vision unchanged, Recent cataract surgery. HENT: Normocephalic, Atraumatic, Tympanic membranes are clear, Normal hearing, Oral mucosa is moist, No pharyngeal erythema, Ear canals patent. Respiratory: Lungs CTA bilaterally, No wheeze, Respirations are non-labored, History of restrictive lung disease and asthma. Cardiovascular: Regular rate, Regular rhythm, S1 auscultated, S2 auscultated, No murmur, Good pulses equal in all extremities, Normal peripheral perfusion, No edema, Varicose veins present, No swelling. Gastrointestinal: Soft, Non-tender, Non-distended, Normal bowel sounds, No organomegaly. Musculoskeletal: Normal range of motion, Normal strength, No tenderness, No swelling, No deformity, Normal gait, History of rheumatoid arthritis, History of knee replacements. Integumentary: Warm, Dry, [place], Intact, History of psoriasis. Neurologic: Alert, Oriented, Normal sensory, Normal motor function, No focal defects, Cranial Nerves II-XII are grossly intact, Normal deep tendon reflexes. Psychiatric: Cooperative, Appropriate mood & affect, Normal judgment, Reports anxiety related to son's mental health issues, Mood fluctuates. Coding Level of Care Code New Pt Level 4 (76046) New Pt Prev Care >65yr (48847) Diagnoses Hyperlipidemia, unspecified hyperlipidemia type E78.5 Hyperlipidemia type: unspecified Rheumatoid arthritis, involving unspecified site, unspecified whether rheumatoid factor present M06.9 Rheumatoid arthritis location: unspecified site Rheumatoid factor presence: unspecified presence Severe persistent asthma without complication J45.50 Asthma complication type: uncomplicated Asthma persistence: persistent Asthma severity: severe Chronic restrictive lung disease J98.4 Chronic cough R05.3 Cough type: chronic Anxiety F41.9 Psoriasis L40.9 Additional Codes PHQ-9 - 53503 - PHQ-9 Billing: Yes ([id number]) GRAHAM-7 Assessment Billing - GRAHAM-7 Assessment Tool: GRAHAM-7 Assessment 24101 ([id number]) Assessment & Plan Assessment & Plan (1) Hyperlipidemia: Comment: Elevated in on blood work in 2023 we will repeat today and re-evaluate at next clinic visit Code(s): E78.5 - Hyperlipidemia, unspecified Category: Medical Qualifiers: Hyperlipidemia type: unspecified Qualified Code(s): E78.5 - Hyperlipidemia, unspecified (2) Rheumatoid arthritis: Comment: - Continue current medication regimen; monitor for efficacy and side effects. Code(s): M06.9 - Rheumatoid arthritis, unspecified Category: Medical Qualifiers: Rheumatoid arthritis location: unspecified site Rheumatoid factor presence: unspecified presence Qualified Code(s): M06.9 - Rheumatoid arthritis, unspecified (3) Asthma: Comment: - Continue albuterol as needed; monitor symptoms and response to treatment. Code(s): J45.909 - Unspecified asthma, uncomplicated Category: Medical Qualifiers: Asthma complication type: uncomplicated Asthma persistence: persistent Asthma severity: severe Qualified Code(s): J45.50 - Severe persistent asthma, uncomplicated (4) Chronic restrictive lung disease: Comment: - Continue current inhalant therapy & rofumilast and monitor lung function regularly. Code(s): J98.4 - Other disorders of lung Category: Medical (5) Cough: Comment: - Continue fluticasone nasal spray Code(s): R05 - Cough Category: Medical Qualifiers: Cough type: chronic Qualified Code(s): R05.3 - Chronic cough (6) Anxiety: Comment: - Initiate buspirone 5 mg three times daily; reassess symptoms in three months. Code(s): F41.9 - Anxiety disorder, unspecified Category: Medical (7) Psoriasis: Comment: - Manage with topical agents as previously prescribed; monitor skin status. Code(s): L40.9 - Psoriasis, unspecified Category: Medical Plan: Health Maintenance: - Ensure annual mammography and ophthalmology checks. - Regular follow-up on thyroid and cholesterol levels. - Comprehensive blood work to assess sugars, cholesterol, thyroid, lipids, and liver panels. Patient was informed and verbally consented to the use of an ambient scribe for clinic note documentation during this visit. Plan During our consultation, the patient agreed to continue the current management plan for her chronic conditions, including hypocystosis, asthma, and rheumatoid arthritis. Given her concern with anxiety, we discussed the initiation of buspirone 5 mg three times daily to address symptoms without risking the contraindications associated with benzodiazepines, which could affect her respiratory status. We emphasized the importance of tracking her blood pressure regularly due to fluctuating readings seen during the visit, without initiating immediate antihypertensive therapy. Follow-up blood work is also planned to get a comprehensive view of her metabolic and endocrine health. Given her background of breast cancer, a repeat mammogram will be completed in the fall, adhering to her annual screening schedule. Lastly, we discussed lifestyle interventions for weight management, encouraging steady progress based on nutritional modifications. Orders: Orders Comprehensive Met. Panel Today E78.5 - Hyperlipidemia, unspecified, Z76.89 - Persons encountering health services in other specified circumstances Hemoglobin A1c Today E78.5 - Hyperlipidemia, unspecified, Z76.89 - Persons en countering health services in other specified circumstances Lipid Panel Today E78.5 - Hyperlipidemia, unspecified, Z76.89 - Persons encountering health services in other specified circumstances Complete Blood Count Auto Diff Today E78.5 - Hyperlipidemia, unspecified, Z76.89 - Persons encountering health services in other specified circumstances Hepatitis A,B,C Profile Today E78.5 - Hyperlipidemia, unspecified, Z76.89 - Persons encountering health services in other specified circumstances HIV Ab/Ag Today E78.5 - Hyperlipidemia, unspecified, Z76.89 - Persons encountering health services in other specified circumstances Syphilis Screen Today E78.5 - Hyperlipidemia, unspecified, Z76.89 - Persons encountering health services in other specified circumstances TSH reflex Free T4 Today E78.5 - Hyperlipidemia, unspecified, Z76.89 - Persons encountering health services in other specified circumstances Vitamin D 25-OH Total Today E78.5 - Hyperlipidemia, unspecified, Z76.89 - Persons encountering health services in other specified circumstances Medications: New buspirone 5 mg PO TID 90 tabs 2RF 30 days Patient Instructions: - Continue current medications for asthma, arthritis, and psoriasis. - Measure blood pressure daily and bring results to the next visit in three months. - Start taking buspirone 5 mg three times a day for anxiety. - Maintain weight management strategies and report any difficulties. - Schedule and keep annual mammogram in the fall. - Follow the blood work order and complete it in a timely manner. - Return in three months for a follow-up appointment or sooner if needed.
[2025-07-18 13:33] VITALS: BP 146/84; PULSE 85; RESP 18; TEMP 36.6; O2SAT 96; BMI 29.3
--- OUTSIDE RECORDS SUMMARY | 2025-07-18 15:26 | XMS_ITS | Clinical Summary ---
Author Organization [facility] Address [address] [facility] [address] [place] [phone] Phone Care Team Providers Care Paper Box Cutter Name Role Phone Ever Ramírez MD Primary Care Provider Allergies Active Allergy Reactions Criticality Noted Date Comments Shrimp 10/15/2019 Medications clobetasol (TEMOVATE) 0.05 % external solution 07/23/2019 A ctive clobetasol (CLOBEX) 0.05 % shampoo 10/11/2019 Active fluocinolone (DERMA-SMOOTHE/FS SCALP) 0.01 % Oil scalp oil 07/23/2019 Active BREO ELLIPTA 100-25 mcg/dose inhaler 10/15/2019 Active ketoconazole (NIZORAL) 2 % shampoo 07/23/2019 Active raloxifene (EVISTA) 60 mg tablet 10/09/2019 Active budesonide-formote rol (SYMBICORT) 160-4.5 mcg/actuation inhaler 11/19/2019 Active Active Problems No known active problems Social History Tobacco Use Types Packs/Day Years [...] on file Sexual Orientation Not on file Last Filed Vital Signs Vital Sign Reading Time Taken Comments Blood Pressure 146/84 11/28/2019 2:16 PM EST Pulse 66 11/28/2019 2:16 PM EST Temperature 36.6 C (97.9 F) 11/28/2019 2:16 PM EST Respiratory Rate 18 11/28/2019 2:16 PM EST Oxygen Saturation 98% 11/28/2019 2:16 PM EST Inhaled Oxygen Concentration - - Weight 86.2 kg (190 lb) 10/15/2019 11:35 AM EST Height 177.8 cm (5' 10 ) 11/28/2019 2:16 PM EST Body Mass Index 27.26 10/15/2019 11:35 AM EST Plan of Treatment Health Maintenance Due Date Last Done Comments Adult Td,Tdap Booster 1950 LIPID PANEL 1950 DEPRESSION SCREENING 1962 HEPATITIS C SCREENING 1968 MAMMOGRAM 1990 COLOGUARD 1995 COLONOSCOPY 1995 COLORECTAL CANCER SCREENING 1995 FIT TEST 1995 FOBT 1995 SIGMOIDOSCOPY 1995 VIRTUAL COLONOSCOPY 1995 ZOSTER VACCINES (1 of 2) 2000 OSTEOPOROSIS SCREENING INITIAL (ONE-TIME) 2015 PNEUMOCOCCAL VACCINES (50+ years) (2 of 2 - PPSV23) 07/14/2021 07/14/2020, 09/07/2017 INFLUENZA VACCINE (#1) 2025 , 07/14/2020, 07/09/2019, Additional history exists COVID-19 VACCINE (2 - 2024- season) 2025 07/30/2021 RSV VACCINE (1 - 1-dose 75+ series) 2025 SMOKING STATUS SCREENING (Once After 26 Yrs) Completed 11/28/2019 HEPATITIS A VACCINES Aged Out No long er eligible based on patient's age to complete this topic HIB VACCINES Aged Out No longer eligi ble based on patient's age to complete this topic MENINGOCOCCAL VACCINES (ACWY) Aged Out No longer eligible based on patient's age to complete this topic MENINGOCOCCAL VACCINES (B) Aged Out N o longer eligible based on patient's age to complete this topic Medical Devices Not on file [place] [address] [address] E[place] PART A [place] [id number] [facility] [place] [address] [place] [address] PPO EPO MEDICARE PART A & B [facility] PPO [facility] PPO EPO MEDICARE PART A & B [facility] PPO [facility] PPO EPO MEDICARE PART A & B [facility] [place] [address] [place] [address] PPO EPO MEDICARE PART A & B [facility] [place] [address] [place] [address] PPO EPO MEDICARE PART A & B [facility] [place] [address] [place] [address] PPO EPO MEDICARE PART A & B [facility] [place] [address] [place] [address] PPO EPO MEDICARE PART A & B [facility] [address]PO [address] [place], [place] [address]O EPO MEDICARE PART A & B [facility] PPO Care Teams Paper Box Cutter Relationship Specialty Start Date End Date Ever Ramírez MD [address] [place] [address] [place] [address] PCP - General Internal Medicine 01/08/19 Additional Source Comments The information contained in this document represents components of the legal health record. It is not the complete legal health record.[facility]
== END 2025-07-18 13:50 | disposition home or self-care (01) ==
LOC: HO.HMCHD 13:25
PROVIDERS: PCP Student in an Organized Health Care Education/Training Program; Visit Provider Student in an Organized Health Care Education/Training Program
DX: Z00.00 Encounter for general adult medical examination without abnormal findings (principal); F41.9 Anxiety disorder, unspecified; M06.9 Rheumatoid arthritis, unspecified; J45.50 Severe persistent asthma, uncomplicated; E78.5 Hyperlipidemia, unspecified; J98.4 Other disorders of lung; R05.3 Chronic cough; L40.9 Psoriasis, unspecified

== ENCOUNTER → 2025-07-18 13:25 | Outpatient (BNVA) | payer OTHER, MEDICARE, SELFPAY | PROVIDERS: PCP Internal Medicine; Visit Provider Student in an Organized Health Care Education/Training Program | DX: E78.5 Hyperlipidemia, unspecified (principal); M06.9 Rheumatoid arthritis, unspecified; J45.50 Severe persistent asthma, uncomplicated; J98.4 Other disorders of lung; R05.3 Chronic cough; F41.9 Anxiety disorder, unspecified; L40.9 Psoriasis, unspecified; Z85.3 Personal history of malignant neoplasm of breast; Z13.31 Encounter for screening for depression; Z13.39 Encounter for screening examination for other mental health and behavioral disorders | CPT/HCPCS: 96127 ==

== ENCOUNTER 2025-07-23 14:51 | Outpatient (REF) | payer OTHER, MEDICARE, SELFPAY ==
--- OUTSIDE RECORDS SUMMARY | 2019-11-28 15:27 | XMS_ITS | Encounter Summary ---
Author Organization [facility] Address [address] [place] [phone] Phone Care Team Providers Care Lasting Floorworker Name Role Phone Ever Ramírez MD Primary Care Provider Encounter Details Date Type Department Care Team (Late st Contact Info) Description 11/28/2019 2:27 PM [facility] Hospital Encounter [facility] [address] [place] [address] Coco Strauss CNP [address] [place] [phone] [email or web address] Social History Tobacco Use Types Packs/Day Years [...] distal fibular diaphysis and medial malleolus. POS: [id number] Narrative 11/28/2019 2:46 PM EST XR ANKLE [...] the distal fibular diaphysis andmedial malleolus. POS: [id number] Coco Gabriel Carlos A LIBRARIAN SPECIALIST IMG XR LOWER EXTREMITY Tali l Result documented in this encounter Visit Diagnoses Not on filedocumented in this encounter Care Teams Lasting Floorworker Relationship Specialty Start Date End Date Ever Ramírez MD [address] [place] [address] [place] [address] PCP - General Internal Medicine 01/08/19 documented as of this encounter Additional Source Comments The information contained in this document represents components of the legal health record. It is not the complete legal health record.[facility]
[2025-07-23 15:21] LABS: MANUAL DIFF FLAG NO
[2025-07-23 15:46] LABS: Hematocrit 38.6 % (37.0-47.0); Hemoglobin 12.8 g/dl (12.0-16.0); Imm Gran Abs Auto 0.02 X10*3/uL (0.00-0.03); Imm Gran Pct Auto 0.4 % (0.0-0.4); Lymphocytes Absolute Auto 1.6 X10*3/uL (1.2-4.9); Mean Corpuscular HGB Conc 33.2 g/dl (31.0-35.0); Mean Corpuscular Hemoglobin 30.9 pg (27.0-33.0); Mean Corpuscular Volume 93.2 fL (80.0-98.0); NRBC Abs Auto 0.000 X10*3/uL (0.0-0.012); NRBC Pct Auto 0.0 /100WBC (0.0-0.2); Platelet Count 298 X10*3/uL (160-400); Red Blood Count 4.14 X10*6/uL (4.20-5.50); White Blood Count 4.7 X10*3/uL (4.8-10.8)
[2025-07-23 15:52] LABS: Hemoglobin A1C 121.9482 umol/L; Total Hemoglobin (HGBA1C) 3425.0960 umol/L
[2025-07-23 16:26] LABS: Alanine Aminotransferase 27 U/L (0-31); Albumin Level 4.6 g/dL (3.5-5.0); Alkaline Phosphatase 83 U/L (39-117); Anion Gap 10 (12-20); Aspartate Amino Transferase 33 U/L (5-31); Blood Urea Nitrogen 22 mg/dL (9-16); Calcium 10.4 mg/dL (8.4-10.2); Carbon Dioxide 27 mmol/L (22-29); Chloride 108 mmol/L (96-108); Cholesterol 231 mg/dL (<200); Estimated Glomerular Filt Rate > 60; HDL Cholesterol 76 mg/dL (>40); Potassium 4.5 mmol/L (3.3-5.1); Sodium 140 mmol/L (135-145); Total Protein 7.3 g/dL (6.5-8.0); Triglycerides 92 mg/dL (<150)
--- OUTSIDE RECORDS SUMMARY | 2025-07-23 17:57 | XMS_ITS | Patient Health Record ---
Author Organization [facility] Address [address] [place] [address] Care Team Providers Care General Doc Name Role Phone Ever Ramírez MD Primary Care Provider UnavailBoo Dawkins Unavailable [phone] Allergies No Known Allergies Reason For Referral No Information Medications Medication SIG (Take, Route, Frequency, Duration) Notes Start Date End Date Status Pepcid 20 MG 1 tablet at bedtime as needed Orally Once a day; Duration: 30 day(s) Active PriLOSEC 10 MG 2 capsules Orally On ce a day; Duration: 30 day(s) Not-Taking Montelukast Sodium 10 MG 1 tablet Orally Once a day; Duration: 30 day(s) Active Vitamin D3 Active Meloxicam 15 MG 1 tablet on the tong ue and allow to dissolve Orally Once a day; Duration: 30 day(s) Active Vitamin B12 1000 MCG 1 tablet Orally Onc e a day; Duration: 30 day(s) Active Magnesium 400 MG as directed Orally Active Ventolin HFA Active Prevagen Active Senokot Active Raloxifene HCl 60 MG 1 tablet Orally Onc e a day; Duration: 30 day(s) Active Evista 60 MG 1 tablet Orally Once a day; Duration: 30 day(s) Not-Taking Vitamin D 600 1 capsule Orally 2x day; Duration: 30 day(s) Not-Taking Fluticasone Furoate 50 MCG/ACT 2 puffs Inhalation Once a day Active Tylenol 1 tab Oral; Duration : 14 days Active Biotin 1000 MCG 1 tablet Orally Once a day; Duration: 30 day(s) Active Tums 500 MG 1 tablet Orally Once a day; Duration: 30 day(s) Active traMADol HCl 50 MG 1 tablet as needed Orally Once a day Active Symbicort 160-4.5 MCG/ACT 2 puffs Inhala tion Twice a day Active Immunizations Vaccine Route Administration Date Status Comme nts COVID-19 Pfizer BioNTech Vaccine Unknown 12/18/2020 Adm inistered Social History Tobacco use other than smoking: Question Answer Notes Are you an other tobacco user? No Problems Problem Type SNOMED Code ICD Code Onset Dates Problem Status W/U Status Risk Notes Problem Acquired hammer toe of left foot ([id number] [id number]) Other hammer toe(s) (acquired), left foot (M20.42) Active confirmed Plan Of Treatment Pending Test Test Name Order Date 78997- Debride <25 sq cm 07/09/2013 31249- Debride <25 sq cm 02/02/2021 [id number], Toes 03/28/2013 Insurance Providers Payer Name Payer Address Payer Phone Subscriber Number Group Number Insured Name Patient Relationship to Insured Coverage Start Date Coverage End Date [facility] -[id number] [address] [address] [place] [address] [id number] Vasquez Pina Spouse - patient is the spouse of the insured [employer] [address] [place] [address] [id number] Rosi Pian Self - patient is the insured Medical (General) History Medical History History ICD Code Arthritis - RA and OA asthma back, hip, knee pain broken bones chicken pox measles mumps cancer joint implants/screws Lung disease Psoriasis/eczema Reflux ( GERD) Sciatica Surgical History Surgery Date(Month/Year) lumpectomy left knee replacement 01/16 right knee replacement 03/19
--- OUTSIDE RECORDS SUMMARY | 2025-07-23 17:58 | XMS_ITS | Clinical Summary ---
Author Organization [facility] Address [address] [facility] [address] [place] [phone] Phone Care Team Providers Care Medication Manager Name Role Phone Ever Ramírez MD Primary [...] topic Medical Devices Not on file [place] [place] [address] [place] PART A [place] [id number] [facility] [place] [address] [address] [place] [address] PPO EPO MEDICARE PART A & B [facility] PPO [facility] PPO EPO MEDICARE PART A & B [facility] PPO [facility] PPO EPO MEDICARE PART A & B [facility] [place] [address] [place] [address] PPO EPO MEDICARE PART A & B [facility] [place] [address] [place] [address] PPO EPO MEDICARE PART A & B [facility] [place] [address] [place] [address] PPO EPO MEDICARE PART A & B [facility] [place] [address] [place] [address] PPO EPO MEDICARE PART A & B [facility] [address] [place], [place] [address] EPO MEDICARE PART A & B [facility] PPO Care Teams Medication Manager Relationship Specialty Start Date End Date Ever Ramírez MD [address] [place] [address] [place] [address] PCP - General Internal Medicine 01/08/19 Additional Source Comments The information contained in this document represents components of the legal health record. It is not the complete legal health record.[facility]
[2025-07-24 09:01] LABS: HBS Num1 2.14 mIU/mL (0-7.99); HBc Num1 0.04 S/CO (0.00-0.79); HIV Num 1 0.05 S/CO (0.00-0.99); Hepatitis A Antibody IgM 0.17 Index (0-0.79); ~HepC Num1 0.05 S/CO (0.00-0.79); ~Hepatitis A Antibody IgM Nonreactive (Nonreactive); ~Hepatitis B Surface Antibody NONREACTIVE (Nonreactive); ~Hepatitis C Antibody Nonreactive (Nonreactive)
[2025-07-24 09:14] LABS: Syphilis Screen Nonreactive (Nonreactive)
[2025-07-24 09:56] LABS: HBsAGNum1 0.30 S/CO (0.00-0.99); Hepatitis B Surface Antigen Negative (Negative)
== END 2025-07-23 14:52 | disposition home or self-care (01) ==
LOC: HO.LAB 14:51
PROVIDERS: PCP Student in an Organized Health Care Education/Training Program; Visit Provider Student in an Organized Health Care Education/Training Program
DX: Z76.89 Persons encountering health services in other specified circumstances (principal); Z11.59 Encounter for screening for other viral diseases; Z11.4 Encounter for screening for human immunodeficiency virus [HIV]; Z13.1 Encounter for screening for diabetes mellitus; E78.5 Hyperlipidemia, unspecified
CPT/HCPCS: 36415; 80053; 80061; 82306; 83036; 84443; 85025; 86704; 86706; 86709; 86780; 86803; 87340; 87389

== ENCOUNTER 2025-08-05 14:11 | Outpatient (AMB) | payer OTHER, MEDICARE, SELFPAY ==
--- OUTSIDE RECORDS SUMMARY | 2019-11-28 15:27 | XMS_ITS | Encounter Summary ---
Author Organization [facility] Address [address] [place] [phone] Phone Care Team Providers Care [employer]dnance Corps Officer Name Role Phone Ever Ramírez MD Primary Care Provider Encounter Details Date Type Department Care Team (Late st Contact Info) Description 11/28/2019 2:27 PM [facility] Hospital Encounter [facility] [address] [place] [phone] Coco Strauss CNP [address] [place] [phone] [email or web address] Social History Tobacco Use Types Packs/Day Years [...] distal fibular diaphysis and medial malleolus. POS: [id number] Narrative 11/28/2019 2:46 PM EST XR ANKLE [...] the distal fibular diaphysis andmedial malleolus. POS: [id number] Coco Gabriel Carlos A GEAR REPAIR SUPERVISOR IMG XR LOWER EXTREMITY Tali l Result documented in this encounter Visit Diagnoses Not on filedocumented in this encounter Care Teams [employer] Officer Relationship Specialty Start Date End Date Ever Ramírez MD [address] [place] [address] [place] [address] PCP - General Internal Medicine 01/08/19 documented as of this encounter Additional Source Comments The information contained in this document represents components of the legal health record. It is not the complete legal health record.[facility]
[2025-08-05 14:17] VITALS: BP 150/74; PULSE 81; O2SAT 94
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
--- OUTSIDE RECORDS SUMMARY | 2025-08-05 16:45 | XMS_ITS | Patient Health Record ---
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 Name Role Phone Ever Ramírez MD Primary Care Provider UnavailBoo Dawkins Unavailable [phone] Allergies No Known Allergies Reason For Referral [...] Problem Acquired hammer toe of left foot ([id number]) Other hammer toe(s) (acquired), left foot (M20.42) Active confirmed Plan Of Treatment Pending Test Test Name Order Date 88271- Debride <25 sq cm 07/09/2013 60937- Debride <25 sq cm 02/02/2021 [id number]-Rrbwlckuw, Toes 03/28/2013 Insurance Providers Payer Name Payer Address Payer Phone Subscriber Number Group Number Insured Name Patient Relationship to Insured Coverage Start Date Coverage End Date [facility] -[id number] [address] [address] [place] [address] [id number] Vasquez Pina Spouse - patient is the spouse of the insured [employer] [address] [place] [address] [id number] Rosi Pina Self - patient is the insured Medical (General) History Medical History History ICD Code Arthritis - RA and OA asthma back, hip, knee pain broken bones chicken pox measles mumps cancer joint implants/screws Lung disease Psoriasis/eczema Reflux ( GERD) Sciatica Surgical History Surgery Date(Month/Year) lumpectomy left knee replacement 01/16 right knee replacement 03/19
--- OUTSIDE RECORDS SUMMARY | 2025-08-05 16:45 | XMS_ITS | Clinical Summary ---
Author Organization [facility] Address [address] [place] [id number] Phone Care Team Providers Care Publicity Consultant Name Role Phone Ever Ramírez MD Primary [...] topic Medical Devices Not on file [place] [address] [place] [address] [place] [id number] [facility] [place] [address] [place] [address] PPO EPO MEDICARE PART A & B [facility] PPO [facility] PPO EPO MEDICARE PART A & B [facility] PPO [facility] PPO EPO MEDICARE PART A & B [facility] [place] [address] [place] [address] PPO EPO MEDICARE PART A & B [facility] [place] [address] [place] [address] PPO EPO MEDICARE PART A & B [facility] [place] [address] [place] [address] PPO EPO MEDICARE PART A & B [facility] [place] [address] [place] [address] PPO EPO MEDICARE PART A & B [facility] [address] [place], [place] [id number] EPO MEDICARE PART A & B [facility] PPO Care Teams Publicity Consultant Relationship Specialty Start Date End Date Ever Ramírez MD [address] [place] [address] [place] [address] PCP - General Internal Medicine 01/08/19 Additional Source Comments The information contained in this document represents components of the legal health record. It is not the complete legal health record.[facility]
== END 2025-08-05 14:35 | disposition home or self-care (01) ==
LOC: HO.HPS 14:12
PROVIDERS: PCP Internal Medicine; Visit Provider Hospitalist
DX: J98.4 Other disorders of lung (principal); R05.3 Chronic cough; J31.0 Chronic rhinitis; J44.9 Chronic obstructive pulmonary disease, unspecified; R06.02 Shortness of breath; M06.9 Rheumatoid arthritis, unspecified
CPT/HCPCS: 99214

== ENCOUNTER 2025-10-17 13:52 | Outpatient (AMB) | payer OTHER, MEDICARE, SELFPAY ==
--- OUTSIDE RECORDS SUMMARY | 2019-11-28 14:27 | XMS_ITS | Encounter Summary ---
Author Organization [facility] Address [address] [place] [address] Phone Care Team Providers Care Fur Grader Name Role Phone Ever Ramírez MD Primary Care Provider Encounter Details Date Type Department Care Team (Late st Contact Info) Description 11/28/2019 2:27 PM [facility] Encounter [facility] [address] [place] [phone] Coco Strauss CNP [address] [place] [phone] [email or web address] Social History Tobacco Use Types Packs/Day Years Used Date Smoking Tobacco: Never Smokeless Tobacco: Never Alcohol Use Standard Drinks/Week Comments Not Currently 0 (1 standard drink = 0.6 oz pur e alcohol) Education Answer Date Recorded Are you interested in more education? Not on clayton e 02/25/2023 Are you concerned about learning? Not on file 02/25/2023 No 02/25/2023 No 02/25/2023 Digital Access Answer Date Recorded No 03/26/2023 No 03/26/2023 Reliable internet access at home? Not on file 03/26/2023 Device with a working camera? Not on file Comments No Sex and Gender Information Value Date Recorded Sex Assigned at Not on file Legal Sex Female 9:21 AM EDT Gender Identity Not on file Sexual Orientation Not on file documented as of this encounter Plan of Treatment Not on file documented as of this encounter Procedures Procedure Name Priority Date/Time Associated Diagnosis Comments XR ANKLE 3 OR MORE VIEWS (RIGHT) Urgent/patient waiting 11/28/2019 2:34 PM EST Acute right ankle pain documented in this encounter Results * XR ANKLE 3 OR MORE VIEWS (RIGHT) (11/28/2019 2:34 PM EST) Anatomical Region Laterality Modality Ankle Right Radiographic Nila ging 11/28/2019 2:40 PM EST Impressions 11/28/2019 2:46 PM EST Soft tissue swelling over the lateral malleolus with no acute displaced fracture. Status post prior fixation of the distal fibular diaphysis and medial malleolus. POS: [id number] Narrative 11/28/2019 2:46 PM EST XR ANKLE 3 OR MORE VIEWS (RIGHT) CLINICAL HISTORY: Ankle pain, initial exam. Lateral sided ankle pain after an injury one and half weeks ago. COMPARISON: None. FINDINGS: Bones and Joints: The distal fibular diaphysis is fixated with an anterior plate and screw construct as well as an additional interfragmentary screw. The medial malleolus is fixated with a single screw. No acute displaced fracture or dislocation is seen. The ankle mortise appears symmetric. The joint spaces are maintained. Soft tissues: There is soft tissue swelling over the lateral malleolus. Procedure Note Audrey Cevallos MD - 11/28/2019 XR ANKLE 3 OR MORE VIEWS (RIGHT) CLINICAL HISTORY: Ankle pain, initial exam. Lateral sided ankle painafter an injury one and half weeks ago. COMPARISON: None. FINDINGS: Bones and Joints: The distal fibular diaphysis is fixated with an anteriorplate and screw construct as well as an additional interfragmentary screw.The medial malleolus is fixated with a single screw. No acute displacedfracture or dislocation is seen. The ankle mortise appears symmetric.The joint spaces are maintained. Soft tissues: There is soft tissue swelling over the lateral malleolus. IMPRESSION: Soft tissue swelling over the lateral malleolus with no acute displacedfracture. Status post prior fixation of the distal fibular diaphysis andmedial malleolus. POS: [id number] Coco Strauss TELESALES CONSULTANT IMG XR LOWER EXTREMITY Tali l Result documented in this encounter Visit Diagnoses Not on filedocumented in this encounter Care Teams Fur Grader Relationship Specialty Start Date End Date Ever Ramírze MD [address] [place] [address] [place] [address] PCP - General Internal Medicine 01/08/19 documented as of this encounter Additional Source Comments The information contained in this document represents components of the legal health record. It is not the complete legal health record.[facility]
[2025-10-17 14:01] VITALS: BP 146/90; PULSE 102; TEMP 36.7; O2SAT 97
--- NOTE | 2025-10-17 14:01 | A.OFFPC_ITS ---
Vital Signs 10/17/25 14:01 Height 5 ft 10 in BP 146/90 H Blood Pressure Location Rt brachial Position Sitting Pulse 102 H Pulse Source Pulse Oximeter Temp 98.1 F Temp Source Temporal Artery Scan Pulse Oximetry (%) 97 Oxygen Delivery Method Room Air Intake Visit Reasons: 3 month f/u [employer] Developer Required: No Accompanied by: Self / Same As Patient Allergies No Known Allergies Allergy (Mild, Verified 10/17/25 14:02) N/A Medication List - Last Reconciled 10/17/25 by Bulmaro Stevens MD albuterol sulfate 90 mcg/actuation 2 puffs inhalation Q6H PRN biotin 0.05 mg PO DAILY buspirone 5 mg PO TID 30 days cholecalciferol (vitamin D3) 50 mcg PO DAILY fluticasone propionate 50 mcg/actuation 2 sprays intranasal DAILY 30 days hydroxychloroquine 200 mg PO BID levalbuterol HCl 1.25 mg (3 mL) inhalation DAILY 30 days magnesium 200 mg PO DAILY meloxicam 15 mg PO DAILY multivitamin 1 tab PO DAILY nebulizers As directed omeprazole 20 mg PO DAILY roflumilast 500 mcg PO DAILY sulfasalazine 1 g PO DAILY tramadol 50 mg PO Q4-6H PRN Tobacco use date assessed: 10/17/25 Fall risk assessment: No Falls in past year Last assessed Fall Risk: 10/17/25 Dental Screening Dental Screen Date: 10/17/25 Did you have a dental visit in the last 12 months?: Yes Did you have a dental problem in the last 6 months where you did not have access to dental care?: No HPI HPI Comments History of Present Illness Details History of Present Illness The patient is a 74 year old female presenting for a follow-up visit for management of chronic conditions, including rheumatoid arthritis and COPD, and to review recent lab results. The patient has a history of rheumatoid arthritis, for which she takes hydroxychloroquine 200 mg twice a day, meloxicam 15 mg, sulfasalazine 1 g once a day, and tramadol every 4 to 6 hours for pain. She sees a engine mechanic every six months and undergoes kidney function tests every three months due to her hydroxychloroquine use, for which she also receives regular eye exams. She has a history of COPD, which she states developed as a result of radiation for breast cancer. Her COPD is managed with an albuterol inhaler, levalbuterol, fluticasone nasal spray, and tiotropium. She also has a history of GERD, managed with omeprazole. The patient reports a history of anxiety, which is well-managed with buspirone 5 mg taken three times a day; she notes feeling calmer and less jumpy on this medication and is requesting a refill. She also has a history of varicose veins. Blood work from July revealed an A1c of 5.4%, stable electrolytes and kidney function, but an elevated total cholesterol of 231 mg/dL with an LDL of 137 mg/dL. She was not previously on treatment for her cholesterol. Her vitamin D and thyroid levels were normal. The patient also reports a new symptom of extremely cold feet at night but denies associated pain or pain with ambulation. Her home blood pressure readings average 130-140 mmHg. Medical History: - Rheumatoid arthritis - Chronic Obstructive Pulmonary Disease, secondary to radiation therapy - Anxiety - Gastroesophageal Reflux Disease (GERD) - Hypercholesterolemia - Hypertension - History of breast cancer, treated with radiation - History of varicose veins Surgical History: - No prior surgical procedures were disc ussed. Medications: - Albuterol inhaler for COPD - Levalbuterol for COPD - Buspirone 5 mg three times a day for a nxiety - Fluticasone nasal spray daily for COPD - Hydroxychloroquine 200 mg twice a day for rheumatoid arthritis - Meloxicam 15 mg for rheumatoid arthrit is - Omeprazole 20 mg for GERD - Tiotropium for COPD - Sulfasalazine 1 g once a day for rheum atoid arthritis - Tramadol every 4 to 6 hours for rheuma toid arthritis pain Family History: - No family history was discussed. Diagnostic Results: - Labs from July: - Hemoglobin A1c: 5.4% - Total Cholesterol: 231 mg/dL - LDL Cholesterol: 137 mg/dL - Electrolytes: Stable - Kidney function: Stable - Vitamin D: Normal - Thyroid function: Normal - Other Diagnostics: - Home Blood Pressure Monitoring: Averag e readings are 130-140 mmHg. Social History - Exercise: The patient plans to resume exercising after the winter. - Diet: The patient acknowledges consump tion of butter [facility] Medical History (Updated 10/17/25 @ 15:00 by Bulmaro Stveens MD) GERD without esophagitis Elevated blood pressure reading in office without diagnosis of hypertension Psoriasis Anxiety Hyperlipidemia Tachycardia Hx of breast cancer Rheumatoid arthritis GERD (gastroesophageal reflux disease) Asthma-COPD overlap syndrome Chronic rhinitis Dyspnea Cough Chronic restrictive lung disease Asthma Surgical History Hx of lumpectomy Hx of excision of mass Hx of total knee arthroplasty Hx of total knee arthroplasty History of open reduction and internal fixation (ORIF) procedure Family History (Updated 10/17/25 @ 14:18 by Moraima Galeas MA) Mother No problems noted. Father No problems noted. 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 Ja Ellington, Khadijah Leavitt, Delgado Denise and colleagues, with an educational cinda from [employer]. Review of Systems Narrative Review of Systems - CONSTITUTIONAL: Reports feeling generally well. - VASCULAR: Reports extremely cold feet at night. - Denies pain in the legs with walking. - PSYCHIATRIC: Reports anxiety, which has improved with medication. - MUSCULOSKELETAL: Endorses chronic pain related to rheumatoid arthritis. All systems reviewed & are unremarkable except as reviewed in HPI and above Physical exam (Primary Care) Vital Signs: Last Vital Signs Temp 98.1 F 10/17/25 14:01 Pulse 102 H 10/17/25 14:01 BP 146/90 H 10/17/25 14:01 Pulse Ox 97 10/17/25 14:01 Oxygen Delivery Method Room Air 10/17/25 14:01 Care Plan Goal for BP management: Within Goal at Home Next steps: Continue to monitor Tobacco/Smoking Status: Tobacco use Status Tobacco use date assessed 10/17/25 10/17/25 14:04 Patient Tobacco Use Status Never used Tobacco 10/17/25 14:04 e-Cigarette/Vaping Use Never Used 10/17/25 14:04 Thrive Assessment: Date of Thrive Assessment Date Thrive assessed 09/18/25 12/18/25 14:04 Narrative Physical Exam General: +Alert and oriented, Well nourished, No acute distress. Eye: Pupils are equal, round and reactive to light, Intact accommodation, Extraocular movements are intact, Normal conjunctiva, Vision unchanged. HENT: Normocephalic, Atraumatic, Tympanic membranes are clear, Normal hearing, Oral mucosa is moist, No pharyngeal erythema, Ear canals patent. Respiratory: Lungs CTA bilaterally, No wheeze, Respirations are non-labored. Cardiovascular: Regular rate, Regular rhythm, S1 auscultated, S2 auscultated, No murmur, Good pulses equal in all extremities, Normal peripheral perfusion, No edema. Gastrointestinal: Soft, Non-tender, Non-distended, Normal bowel sounds, No organomegaly. Musculoskeletal: Normal range of motion, Normal strength, No tenderness, No swelling, No deformity, Normal gait. Integumentary: Warm, Dry, [place], Intact. Neurologic: Alert, Oriented, Normal sensory, Normal motor function, No focal defects, Cranial Nerves II-XII are grossly intact, Normal deep tendon reflexes. Psychiatric: Cooperative, Appropriate mood & affect, Normal judgment. Coding Level of Care Code Est Pt Level 4 (70144) Add On Problem Visit Only Diagnoses Hyperlipidemia, unspecified hyperlipidemia type E78.5 Hyperlipidemia type: unspecified Elevated blood pressure reading in office without diagnosis of hypertension R03.0 Rheumatoid arthritis, involving unspecified site, unspecified whether rheumatoid factor present M06.9 Rheumatoid arthritis location: unspecified site Rheumatoid factor presence: unspecified presence Severe persistent asthma without complication J45.50 Asthma severity: severe Asthma persistence: persistent Asthma complication type: uncomplicated Anxiety F41.9 GERD without esophagitis K21.9 Psoriasis L40.9 Assessment & Plan Assessment & Plan (1) Hyperlipidemia: Comment: - Labs from July showed elevated cholesterol (Total 231, LDL 137). - The plan is a 6-month trial of lifestyle modifications, including a diet low in fat and salt, and increased exercise. - We discussed the risks and benefits of statins, and if lipids remain elevated after 6 months, medication will be initiated. Code(s): E78.5 - Hyperlipidemia, unspecified Category: Medical Qualifiers: Hyperlipidemia type: unspecified Qualified Code(s): E78.5 - Hyperlipidemia, unspecified (2) Elevated blood pressure reading in office without diagnosis of hypertension: Comment: - Home blood pressure readings average 130-140 mmHg, with today's reading in the 140s. - The patient is encouraged to reduce salt intake, which should also help her cholesterol. - Blood pressure will be re-evaluated at the 6-month follow-up. Code(s): R03.0 - Elevated blood-pressure reading, without diagnosis of hypertension Category: Medical (3) Rheumatoid arthritis: Comment: - Chronic, stable condition. - The patient will continue her current medications including hydroxychloroquin e, meloxicam, sulfasalazine, and tramadol. - She will continue follow-up with her engine mechanic every 6 months. Code(s): M06.9 - Rheumatoid arthritis, unspecified Category: Medical Qualifiers: Rheumatoid arthritis location: unspecified site Rheumatoid factor presence: unspecified presence Qualified Code(s): M06.9 - Rheumatoid arthritis, unspecified (4) Asthma: Comment: - Chronic, stable condition secondary to prior radiation. - The patient will continue her current inhaler regimen. Code(s): J45.909 - Unspecified asthma, uncomplicated Category: Medical Qualifiers: Asthma severity: severe Asthma persistence: persistent Asthma complication type: uncomplicated Qualified Code(s): J45.50 - Severe persistent asthma, uncomplicated (5) Anxiety: Comment: - Well-controlled on buspirone. - A refill will be provided. Code(s): F41.9 - Anxiety disorder, unspecified Category: Medical (6) GERD without esophagitis: Comment: - Stable on omeprazole. - The patient will continue the current medication. Code(s): K21.9 - Gastro-esophageal reflux disease without esophagitis Category: Medical (7) Psoriasis: Comment: - Manage with topical agents as previously prescribed; monitor skin status. Code(s): L40.9 - Psoriasis, unspecified Category: Medical Plan: Health Maintenance: - Follow-up with ophthalmology for routine eye exams due to hydroxychloroquine use. - Follow-up with rheumatology every six months. - Dietary counseling provided: Advised to reduce intake of butter, fat, and salt to manage cholesterol and blood pressure. - Exercise counseling provided: Encouraged to resume exercise after the winter. - A follow-up visit is scheduled in six months for a physical exam, blood pressure check, and repeat lab work, including a lipid panel. Patient was informed and verbally consented to the use of an ambient scribe for clinic note documentation during this visit. Plan I reviewed the lab results from July with the patient, highlighting her el evated cholesterol with a total of 231 and LDL of 137. We discussed her concerns about potential side effects from statin medications. I explained that the benefits of statins in reducing the risk of heart attacks and strokes are immense and very important to consider. We agreed to a six-month trial of lifestyle changes, including dietary modification to reduce fat and salt, and increased exercise. I informed her that if her cholesterol remains high after this period, we will need to start medication. I also addressed her borderline high blood pressure, explaining that the recommended dietary changes will benefit it as well. Regarding her complaint of cold feet, I reassured her that peripheral vascular disease was less likely given her lack of pain with walking. I recommended she return in six months for a physical, blood pressure check, and repeat labs to reassess her cholesterol. Medications: Refilled buspirone 5 mg PO TID 90 tabs 2RF 30 days Patient Instructions: - Continue taking all your current medications for rheumatoid arthritis, COPD, and acid reflux as prescribed. - I will send a refill for your anxiety medication, buspirone. - For the next six months, please focus on lifestyle changes to help lower your cholesterol. - Change your diet by cutting down on butter, fatty foods, and salt. - Try to increase your physical activity, especially once the cold weather passes. - Continue to see your engine mechanic every six months and get your regular eye exams. - Please schedule a follow-up appointment for a physical in six months. At that visit, we will check your blood pressure and repeat your blood work to check your cholesterol.
--- OUTSIDE RECORDS SUMMARY | 2025-10-17 18:06 | XMS_ITS | Patient Health Record ---
[facility] Address [address] [place] [address] Care Team Providers Care Digital Advertising Analyst Name Role Phone Ever Ramírez MD Primary Care Provider UnavailBoo Dawkins Unavailable [phone] Allergies No Known Allergies Reason For Referral [...] Problem Acquired hammer toe of left foot ([id number]) Other hammer toe(s) (acquired), left foot (M20.42) Active confirmed Plan Of Treatment Pending Test Test Name Order Date 37305- Debride <25 sq cm 07/09/2013 56874- Debride <25 sq cm 02/02/2021 [id number], Toes 03/28/2013 Insurance Providers Payer Name Payer Address Payer Phone Subscriber Number Group Number Insured Name Patient Relationship to Insured Coverage Start Date Coverage End Date [facility] -[id number] [address] [address] [place] [address] [phone] [id number] Vasquez Pina Spouse - patient is the spouse of the insured [employer] [address] [facility] [place] [address] [id number] Rosi Pina Self - patient is the insured Medical (General) History Medical History History ICD Code Arthritis - RA and OA asthma back, hip, knee pain broken bones chicken pox measles mumps cancer joint implants/screws Lung disease Psoriasis/eczema Reflux ( GERD) Sciatica Surgical History Surgery Date(Month/Year) lumpectomy left knee replacement 01/16 right knee replacement 03/19
--- OUTSIDE RECORDS SUMMARY | 2025-10-17 18:06 | XMS_ITS | Clinical Summary ---
Author Organization [facility] Address [address] [place] [phone] Phone Care Team Providers Care Splash Line Operator Name Role Phone Ever Ramírez MD Primary Care Provider Allergies Active Allergy Reactions Criticality Noted Date Comments Shrimp 10/15/2019 Medications multivitamin-m inerals-lutein (CENTRUM SILVER) Tab Take 1 tablet by mouth daily. Active flaxseed oiL 1,000 mg Cap Take 1,000 mg by mouth daily. Active roflumilast (DALIRESP) 500 mcg Tab Take 500 mcg by mouth daily. Active hydroxychloroq uine (PLAQUENIL) 200 mg tablet Take 200 mg by mouth 2 (two) times a day. Active Medication-Mau e Text Take 500 mg by mouth. sulasalzine Active Medication-Mau e Text 400 mg. Magnesium Active cholecalcifero l (VITAMIN D3) 3,000 unit tablet Take 1,000 Units by mouth daily. Active albuterol 90 mcg/actuation inhaler Inhale 2 puffs into the lungs every 6 (six) hours as needed for wheezing. Active meloxicam (MOBIC) 15 MG tablet Take 15 mg by mouth daily. Active traMADoL (ULTRAM) 50 mg tablet Take 50 mg by mouth every 6 (six) hours as needed for pain (specific location in comments). Active Medication-Mau e Text [employer] Active biotin 1 mg tablet Take 1,000 mcg by mouth 3 (three) times a day. Active acetaminophen (TYLENOL) 500 mg capsule Take by mouth. Acti ve clobetasol (TEMOVATE) 0.05 % external solution 9 10/10/20 25 Discontin ued(No longer taking) clobetasol (CLOBEX) 0.05 % shampoo 9 10/10/20 25 Discontin ued(No longer taking) fluocinolone (DERMA-SMOOTHE /FS SCALP) 0.01 % Oil scalp oil 9 10/10/20 25 Discontin ued(No longer taking) BREO ELLIPTA 100-25 mcg/dose inhaler 9 10/10/20 25 Discontin ued(No longer taking) ketoconazole (NIZORAL) 2 % shampoo 9 10/10/20 25 Discontin ued(No longer taking) raloxifene (EVISTA) 60 mg tablet 9 10/10/20 25 Discontin ued(No longer taking) budesonide-for moterol (SYMBICORT) 160-4.5 mcg/actuation inhaler 0 10/10/20 25 Discontin ued(No longer taking) Active Problems Problem Noted Date Diagnosed Date Rheumatoid arthritis 10/10/2025 Class 1 obesity 10/10/2025 COPD (chronic obstructive pulmonary disease) 08/2025 GERD (gastroesophageal reflux disease) Kyphosis 10/10/2025 Osteoarthritis 10/10/2025 Osteoporosis 10/10/2025 Breast cancer in situ 12/29/1996 Encounters Date Type Department Care Team Description 10/10/2025 2:30 PM EST Office Visit [facility] [address] [place] [address] [place] [address] Otto Lorenzo MD Vulvar lump (Primary Dx) from Last 3 Months Family History Medical History Relation Comments Breast cancer Mother Uterine cancer Mother Relation Status Comments Father Maternal Aunt Alive Mother Social History Tobacco Use Types Packs/Day Years [...] Sign Reading Time Taken Comments Blood Pressure 142/84 10/10/2025 2:48 PM EST Pulse 66 11/28/2019 2:16 PM [...] DEPRESSION SCREENING 1962 HEPATITIS C SCREENING 1968 ZOSTER VACCINES (1 of 2) 1969 MAMMOGRAM 1990 COLOGUARD 1995 COLONOSCOPY 1995 COLORECTAL CANCER SCREENING 1995 FIT TEST 1995 FOBT 1995 SIGMOIDOSCOPY 1995 VIRTUAL COLONOSCOPY 1995 OSTEOPOROSIS SCREENING INITIAL (ONE-TIME) 2015 INFLUENZA VACCINE (#1) 2025 , 09/01/2023, 07/30/2021, Additional history exists COVID-19 VACCINE (2024- season) 2025 09/01/2023, 08/02/2022, 07/30/2021 PNEUMOCOCCAL VACCINES (50+ years) Completed 08/02/2022, 07/14/2020, 09/07/2017 RSV VACCINE Completed 08/08/2024 SMOKING STATUS SCREENING (Once After 26 Yrs) Completed 10/10/2025 HEPATITIS A VACCINES Aged Out No long [...] topic Medical Devices Not on file Insurance MEDICARE PART A & B [facility] PPO [facility] Address: [facility] [address] [place] [address] MEDICARE PART A & B [employer] PPO MEDICARE PART A & B MEDICARE PART A & B MEDICARE PART A & B [employer] PPO [facility] Address: [facility] [id number] [place] [address] MEDICARE PART A & B MEDICARE PART A & B Member Subscriber Plan / Payer (Ef fective 2015-Present) Name:Rosi Pina Member ID:[id number] Relation to Subscriber:Self Name:Rosi Pina Subscriber ID:[id number] Payer ID:[id number] Group ID:Not on file Type:Medicare Address: [employer] [address] [place] [phone] [facility] A & B [facility] PPO (Home[address] [id number] MEDICARE PART A & B [facility] PPO [facility] Address: [facility] [id number] [place] [address] Care Teams Splash Line Operator Relationship Specialty Start Date End Date Ever Ramírez MD [address] [place] [address] Dr KRISHNAMURTHY [place], [place] [id number] PCP - General Internal Medicine 01/08/19 Additional Source Comments The information contained in this document represents components of the legal health record. It is not the complete legal health record.[facility]
== END 2025-10-17 14:28 | disposition home or self-care (01) ==
LOC: HO.HMCHD 13:52
PROVIDERS: PCP Internal Medicine; Visit Provider Student in an Organized Health Care Education/Training Program
DX: E78.5 Hyperlipidemia, unspecified (principal); R03.0 Elevated blood-pressure reading, without diagnosis of hypertension; M06.9 Rheumatoid arthritis, unspecified; J45.50 Severe persistent asthma, uncomplicated; F41.9 Anxiety disorder, unspecified; K21.9 Gastro-esophageal reflux disease without esophagitis; L40.9 Psoriasis, unspecified